=== PATIENT | male | born 1950 | race Caucasian/White ===

== ENCOUNTER 2023-12-10 14:47 | Outpatient (CLI) | payer MEDICARE, SELFPAY ==
--- NOTE | ~2023-12-10 | XR_ITS ---
XR knee RT 3V Ordering provider: Dmitriy Marrufo ([place]), History: . PAIN OF RT KNEE JOINT AFTER FALL . Comparison: None. FINDINGS: BONES: No acute fracture or dislocation. JOINT SPACES: Normal. SOFT TISSUES: Normal. IMPRESSION: No acute osseous abnormality right knee. Reviewed, dictated and finalized at location A.
--- NOTE | ~2023-12-10 | XR_ITS ---
3 VIEWS LUMBAR SPINE Ordering provider: Dmitriy Marrufo ([place]), History: . LUMBAR RADICULOPATHY AFTER FALL . Comparison: None. FINDINGS: VERTEBRAL BODIES: No visible fracture or subluxation. DISK SPACES: Narrowing of the disc L3-L4. SOFT TISSUES: Normal. IMPRESSION: No acute osseous abnormality lumbar spine. Reviewed, dictated and finalized at location A.
--- NOTE | ~2023-12-10 | XR_ITS ---
[id number] Ordering provider: Dmitriy Marrufo ([place]), History: . LT FLANK PAIN AFTER FALL . Comparison: None. FINDINGS: BONES: No acute left rib fracture or fracture of the visualized osseous structures. Degenerative spine. LEFT LUNG: No effusions or infiltrates. No pneumothorax. Emphysematous lungs. SOFT TISSUES: Normal. IMPRESSION: No left rib fracture. Reviewed, dictated and finalized at location A. IMPRESSION: No left rib fracture.
== END 2023-12-10 14:48 | disposition home or self-care (01) ==
PROVIDERS: PCP Internal Medicine; Visit Provider Internal Medicine
DX: M54.16 Radiculopathy, lumbar region (principal); R10.9 Unspecified abdominal pain; M25.561 Pain in right knee
CPT/HCPCS: 71101; 72110; 73562

== ENCOUNTER 2023-12-24 08:57 | Outpatient (CLI) | payer MEDICARE, SELFPAY ==
--- NOTE | ~2023-12-24 | US_ITS ---
EXAMINATION: US aorta [facility] DATE: 12/24/2023 16:19 CDT INDICATION: Nicotine dependence TECHNIQUE: Grayscale, color Doppler, and pulsed Doppler images of the aorta and common iliac arteries were obtained. COMPARISON: None. FINDINGS: The proximal aorta measures 1.9 cm greatest sagittal dimension. The mid aorta measures 1.9 cm greates t sagittal dimension. The distal aorta measures 1.5 cm greatest sagittal dimension. The right common internal iliac artery measures 6 mm. The left common iliac artery measures 6 mm. IMPRESSION: 1. Atherosclerosis of the aorta without evidence for aneurysm. Reviewed, dictated and finalized at location B.
--- NOTE | ~2023-12-24 | CT_ITS ---
EXAMINATION: CT lung screening DATE: 12/24/2023 09:25 INDICATION: HX OF NICOTINE DEPENDENCE TECHNIQUE: Computed tomography (CT) of the chest was performed without intravenous contrast. Addition al 3D reconstructions utilizing coronal maximum intensity projection (MIP) were performed. Automated exposure control and iterative reconstruction technique were employed. The dose-length product was 86 .90 mGy-cm. COMPARISON: None FINDINGS: Moderate emphysema with relatively symmetric mild to moderate biapical pleural-parenchymal scarring. A few small bilateral calcified pulmonary nodules along with calcified right hilar and mediastinal ly mph nodes consistent with old granulomatous disease. A couple 2 mm noncalcified nodules in the right lung. No pulmonary edema or pleural effusion. Heart size is normal. Atherosclerotic coronary artery c alcific lesion. Thoracic aorta is normal in caliber. No pathologically enlarged thoracic lymphadenopa thy. Thyromegaly. There are also few small splenic and single hepatic calcification consistent with o ld granulomatous disease. Partially visualized at least 7.4 similar left renal cyst. Moderate thoraci c spondylosis. IMPRESSION: 1. Lung-RADS category 2: Benign appearance or behavior. Continue annual screening with noncontrast lo w-dose chest CT in 12 months. 2. Thyromegaly. Reviewed, dictated and finalized at location A. IMPRESSION: 1. Lung-RADS category 2: Benign appearance or behavior. Continue annual screeni ng with noncontrast low-dose chest CT in 12 months. 2. Thyromegaly.
--- NOTE | ~2023-12-24 | US_ITS ---
EXAMINATION: US thyroid DATE: 12/24/2023 10:25 INDICATION: Thyroid nodule TECHNIQUE: Multiple ultrasound images of the thyroid were obtained. COMPARISON: None. FINDINGS: The right thyroid lobe measures 8.5 x 4.5 x 3.5 cm. The left thyroid lobe measures 6.8 x 3.7 x 2.9 c m. The thyroid isthmus measures 8 mm in thickness. There are a few solid predominantly solid, wider t ansari tall hypoechoic nodules with smooth margins and without echogenic foci (TI-RADS 4, moderately palak picious , FNA if >=1.5 cm, annual followup is >=1 cm). These measure 10 mm in the inferior right thyr oid, 8 mm in the deep mid right thyroid, 8 mm in the superior right thyroid 7 mm at the isthmus. Ther e is coarsened echotexture throughout the surrounding thyroid. IMPRESSION: 1. Mild thyromegaly with several TI RADS 4 nodules the largest measuring 10 mm for which annual ultra sound follow-up would be recommended. Reviewed, dictated and finalized at location A. IMPRESSION: 1. Mild thyromegaly with several TI RADS 4 nodules the largest measuring 10 mm for which annual ultrasound follow-up would be recommended.
== END 2023-12-24 08:58 | disposition home or self-care (01) ==
LOC: ANHIMG 09:04
PROVIDERS: PCP Internal Medicine; Visit Provider Internal Medicine
DX: Z12.2 Encounter for screening for malignant neoplasm of respiratory organs (principal); E04.1 Nontoxic single thyroid nodule; I70.0 Atherosclerosis of aorta; F17.210 Nicotine dependence, cigarettes, uncomplicated
CPT/HCPCS: 71271; 76536; 76706

== ENCOUNTER 2024-01-30 09:28 | Outpatient (CLI) | payer MEDICARE, SELFPAY ==
--- NOTE | ~2024-01-30 | US_ITS ---
US arterial ankle brachial ind INDICATION: Peripheral vascular disease TECHNIQUE: Segmental pressures and plethysmographic and Doppler waveforms of the brachial and lower e xtremity arteries were obtained. COMPARISON: None. FINDINGS: Right and left brachial artery pressures of 131 mm Hg and 141 mm Hg, respectively, are concordant (no rmal difference <= 30 mmHg). The right ankle-brachial index (DESTINY) is 0.55 (normal >= 0.9-1.0). The right great toe-brachial index (TBI) is 1.21 (normal >= 0.60). The left DESTINY is 1.11. The left TBI is 0.42. IMPRESSION: 1. Diminished right DESTINY) bilateral toe brachial indices consistent with peripheral arterial disease. Reviewed, dictated and finalized at location B. IMPRESSION: 1. Diminished right DESTINY) bilateral toe brachial indices consistent with periphe ral arterial disease.
== END 2024-01-30 09:29 | disposition home or self-care (01) ==
LOC: ANHIMG 09:30
PROVIDERS: PCP Internal Medicine; Visit Provider Internal Medicine
DX: I73.9 Peripheral vascular disease, unspecified (principal)
CPT/HCPCS: 93922

== ENCOUNTER 2024-07-08 16:14 | Outpatient (CLI) | payer MEDICARE, SELFPAY ==
--- NOTE | ~2024-07-08 | US_ITS ---
EXAMINATION: US thyroid DATE: 07/08/2024 16:56 INDICATION: Nontoxic thyroid nodule. TECHNIQUE: Multiple ultrasound images of the thyroid were obtained. COMPARISON: Ultrasound 12/24/2023 FINDINGS: The right thyroid lobe measures 8.2 x 4.7 x 2.3 cm. The left thyroid lobe measures 6.1 x 4.3 x 2.1 c m. In the right thyroid lobe, there is a 9 mm solid, hypoechoic, wider than tall nodule with smooth margin without echogenic foci (TI-RADS TR4). In the right lower lobe, there is an 8 mm solid, hypoech oic, wider than tall nodule with smooth margin without echogenic foci (TR4). IMPRESSION: 1. Small thyroid nodules, likely not clinically significant. No follow-up is needed. Reviewed, dictated and finalized at location A. R OPERATOR IMPRESSION: 1. Small thyroid nodules, likely not clinically significant. No follow-up is ne eded.
--- OUTSIDE RECORDS SUMMARY | 2024-07-08 16:18 | XMS_ITS | CONTINUITY OF CARE DOCUMENT ---
Author Name tanya martínez Address Unknown Organization [facility] Address [address] [place] [address] Phone [phone] Care Team Providers Care Senior Tax Accountant Name Role Phone tanya martínez Unavailable Unavailable INSURANCE PROVIDERS Payer name Policy type / Coverage type [employer] red republican ID [facility] [id number]
--- OUTSIDE RECORDS SUMMARY | 2024-07-08 16:18 | XMS_ITS | Data Portability ---
Author Organization [facility] [employer] Address [address] [facility] [address] [place] [address] Assessment Encounter Date Assessment Date Assessment LastModified by Organization Details LastModified Time 05/30/2023 05/30/2023 Patient presente d for follow up. Studies ordered as below. Discussed plan with patient/caregiver , who expressed understanding. Follow up as noted below. [email or web address] Not available 05/30/2023 09:13:09 11/29/2023 11/29/2023 Patient presente d to office today for their Medicare Annual Wellness Visit. Recommends healthy nutrition, including a diet rich in fruits and vegetables, minimizing simple carbohydrates, salt, and saturated fats. Encouraged regular cardiovascular exercise such as walking at least 30 minutes daily, 5 times per week. Emphasized preventive health measures and educated pt on fall prevention and community-based lifestyle interventions to help reduce health risks and promote healthy living. [facility] Not available 11/29/2023 11:49:15 01/10/2024 01/10/2024 Recommends healthy nutrition, including a diet rich in fruits and vegetables, minimizing simple carbohydrates, salt, and saturated fats. Encouraged regular cardiovascular exercise such as walking at least 30 minutes daily, 5 times per week. Emphasized preventive health measures and educated pt on fall prevention and community-based lifestyle interventions to help reduce health risks and promote healthy living. [facility] Not available 01/10/2024 14:26:59 06/25/2024 06/25/2024 Recommends healthy nutrition, including a diet rich in fruits and vegetables, minimizing simple carbohydrates, salt, and saturated fats. Encouraged regular cardiovascular exercise such as walking at least 30 minutes daily, 5 times per week. Emphasized preventive health measures and educated pt on fall prevention and community-based lifestyle interventions to help reduce health risks and promote healthy living. Not available 06/25/2024 13:24:14 Plan of Treatment Reminders Order Date Submit Date Provider Last Modified By Organization Details Last Modified Time Details Appointments ENEDINA REYNOLDS PATIENT 15 2024 09:30A M Garima Méndez MD Not available Not available Not available Lab TSH, serum or plasma 2022 023 [facility] Not available 02/06/2023 14:04:05 T4, free, serum 2022 023 [facility] Not available 02/06/2023 14:04:03 T3, free, serum or plasma 2022 023 [facility] Not available 02/06/2023 14:04:02 D-dimer , qual, plasma 2022 023 [email or web address] Not available 03/05/2023 12:25:47 CBC w/ auto diff 2022 023 [facility] Not available 02/06/2023 14:04:01 PSA, serum or plasma 2022 023 [facility] Not available 02/06/2023 14:04:04 lipid panel, blood 2022 023 [facility] Not available 02/06/2023 14:04:03 CMP, serum or plasma 2022 023 [facility] Not available 02/06/2023 14:04:01 lipid panel, blood 2023 024 Kimberlyn-Resub anthony-Revert [facility], [address] [facility], [place], [address], 11/29/2023 15:55:17 urinaly sis complet e, reflex culture 2023 024 Kimberlyn-Resub anthony-Revert [facility], [address] [facility], [place], [address], 11/29/2023 13:00:45 noninva sive colorec andra cancer DNA + occult blood screeni ng, QL, stool 2023 024 [facility] (Cologuard Orders Only), [address], [address], [place], [address], 11/29/2023 12:03:57 urinaly sis complet e, reflex culture 2023 024 [facility], [address] [facility], [place], [address], 01/10/2024 14:29:32 lipid panel, blood 2023 024 [facility], [address] [facility], [place], [address], 01/10/2024 14:29:33 noninva sive colorec andra cancer DNA + occult blood screeni ng, QL, stool 2023 024 [facility] [employer] [facility] (Cologuard Orders Only), [address], [address], [place], [address], 02/07/2024 15:22:30 TSH + free T4, serum 2024 025 [facility], [address] [facility], [place], [address], 07/02/2024 08:14:49 T3, free, serum or plasma 2024 025 [facility], [address] [facility], [place], [address], 07/02/2024 08:14:49 PSA, serum or plasma 2024 025 [facility], [address] [facility], [place], [address], 06/25/2024 13:35:59 lipid panel, blood 2024 025 [facility], [address] [facility], [place], [address], 06/25/2024 13:35:59 lipid panel, serum [address] [facility], [address] [facility], [place], [address], 07/02/2024 08:14:49 CMP, serum or plasma 2024 025 [facility], [address] [facility], [place], [address], 07/03/2024 14:00:59 noninva sive colorec andra cancer DNA + occult blood screeni ng, QL, stool 2024 025 [facility] [employer] [facility] (Cologuard Orders Only), [address], [address], [place], [address], 06/25/2024 13:35:00 Referral cardiol ogist referra l 2022 023 catrina [facility], [address] [facility], [address], [place], [address], 02/07/2024 08:23:07 cardiol ogist referra l 2022 023 ESTER Lugo MD, [address] [facility] , [address], [place], [address], 08/14/2023 10:30:[address] referra l 2022 023 [facility], [address] [facility], [address], [place], [address], 06/27/2023 08:18:[address] referra l 2023 024 [facility], [address] [place] [address], [place], [address], 12/27/2023 08:15:20 cardiol ogist referra l 2023 024 johnathonuDerick Lugo MD, [address] [facility] , [address], [place], [address], 11/29/2023 12:16:47 neurolo gist referra l 2023 024 JAMAMaye Anderson MD, [address] [facility] , [address], [place], [address], 11/29/2023 12:29:[address] referra l 2023 024 [facility], OT, Speech Therapy, [address] [facility] , [place], [address], 11/29/2023 12:29:04 cardiol ogist referra l 2023 024 [facility] Cardiology [facility], [address] [place], [address], 01/10/2024 14:30:[address] referra l 2023 024 [facility] Urology [facility], [address], [place], [address], 02/07/2024 08:23:20 neurolo gist referra l 2023 024 [facility], [address], [place], [address], 01/10/2024 14:30:[address] referra l 2024 025 [facility] Urology [facility], [address], [place], [address], 06/25/2024 13:55:19 orthope dic surgeon referra l 2024 025 [facility]), [address] [facility], [place], [address], 06/25/2024 18:30:57 neurolo gist referra l 2024 025 ESTER Anderson MD, [address] [facility] , [address], [place], [address], 07/06/2024 11:25:22 Procedures None recorde d. Surgeries None recorde d. Imaging US, thyroid 2022 023 [email or web address] [facility]), [address], [address], [place], [address], 02/14/2023 16:35:26 electro cardiog miguel angel 2022 023 [facility], [address], [place], [address], 02/07/2023 09:40:34 CT, angiogr am, chest, w/ contras t - -- to evaluat e for aneurys m &/or dissect ion 2022 023 [facility]), [address], [address], [place], [address], 04/04/2023 16:17:26 US, screeni ng for abdomin al aortic aneurys m 2022 023 [facility]), [address], [address], [place], [address], 02/07/2023 08:14:06 US, doppler , arteria l 2022 023 catrina [facility] Ultrasound Department, [address] [facility] , [place], [address], 08/21/2023 08:15:05 US, thyroid 2022 023 catrina [facility], [address] [facility], [place], [address], 06/13/2023 08:25:21 US, screeni ng for abdomin al aortic aneurys m 2022 023 [email or web address] [facility]), [address], [address], [place], [address], 06/07/2023 08:26:43 LDCT, chest, for lung cancer screeni ng - -- LDCT to be done around 04/03/242022 023 [facility] Central Scheduling, [address] [facility], [place], [address], 06/07/2023 08:26:44 US, doppler , arteria l 2023 024 [facility], [address], [address], [place], [address], 12/17/2023 08:03:38 US, thyroid 2023 024 [facility] Centralized Scheduling, Centralized Scheduling, [address] [facility] [place], [address], 12/13/2023 08:51:02 XR, knee, 3 view 2023 024 [facility] Centralized Scheduling, Centralized Scheduling, [address] [place], [address], 12/06/2023 08:20:41 XR, lumbar spine 2023 024 [facility] Centralized Scheduling, Centralized Scheduling, [address] [place], [address], 12/06/2023 08:20:41 XR, ribs, unilate ral, w/ PA chest 2023 024 [facility] Central Scheduling, [address] [facility], [place], [address], 12/06/2023 08:20:41 US, screeni ng for abdomin al aortic aneurys m 2023 024 [facility] Centralized Scheduling, Centralized Scheduling, [address] [facility] [place], [address], 12/06/2023 08:20:40 LDCT, chest, for lung cancer screeni ng - -- LDCT to be done around 04/03/242023 024 [facility] Patient Access Centralized Scheduling, Centralized Scheduling, [address] [facility] [place], [address], 12/06/2023 08:20:40 MRI, brain, w/wo contras t 2023 024 [facility] Patient Access Centralized Scheduling, Centralized Scheduling, [address] [facility] [place], [address], 12/06/2023 08:20:40 US, thyroid 2023 025 [facility], [address] [place] [address], [address], 01/10/2024 14:29:55 XR, knee, 3 view [address], [address] [place] [address], [address], 01/17/2024 09:05:11 US, thyroid - Radiolo gist recomme nds repeati ng thyroid Ultraso und 1 year from 12/26/232024 025 [facility], [address] [place] [address], [address], 06/25/2024 13:45:27 Medication Orders sildena finn 100 mg tablet 2022 023 [facility] [address], [place], [address], 01/31/2023 17:23:34 sildena finn 100 mg tablet 2022 023 [facility], [address], [place], [address], 05/30/2023 10:20:54 sildena finn 100 mg tablet 2023 024 [facility] [address], [address], [place], [address], 11/29/2023 12:04:01 Breztri Aerosph ere 160 mcg-9mc g-4.8mc g/actua tion HFA aerosol inhaler [address] [id number], [address], [place], [address], 01/10/2024 14:28:36 sildena finn 100 mg tablet 2023 024 [facility], [address], [place], [address], 01/10/2024 14:28:42 Breztri Aerosph ere 160 mcg-9mc g-4.8mc g/actua tion HFA aerosol inhaler [address] [facility] [id number], [address], [place], [address], 06/25/2024 13:35:10 rosuvas tatin 5 mg tablet [address] [facility] [id number], [address], [place], [address], 06/25/2024 13:35:09 sildena finn 100 mg tablet 2024 025 [facility] [address], [address], [place], [address], 06/25/2024 13:35:11 Patient TargetsNo targets recorded. Patient Instructions Encounter Date Encounter Id Patient Instructions Last Modified By Organization Details Last Modified Time 01/31/2023 [id number] advised to quit smoking Not available 01/31/2023 17:23:27 05/30/2023 [id number] advised to quit smoking Not available 05/30/2023 10:20:46 11/29/2023 [id number] medicare preventive services guide Not available 11/29/2023 12:03:49 advance care planning: care instructions Not available 11/29/2023 12:03:49 advised to quit smoking Not available 11/29/2023 12:03:49 Discussed and explained advance directives such as standard forms to the {{patient caregiv er patient and caregiver}}. Face to face discussion lasted for a duration of ___ minutes. Not available 11/29/2023 11:39:36 01/10/2024 [id number] advised to quit smoking [facility] Not available 01/10/2024 14:28:32 06/25/2024 [id number] advised to quit smoking Not available 06/25/2024 13:34:59 Reason for Referral Bin Cleaner Referral for Ch est pain Referring Physician: Garima Méndez [facility], Encounter Date: 01/31/2023 Bin Cleaner Referral for Ch est pain Referring Physician: Garima Méndez [facility], Encounter Date: 05/30/2023 Urologist Referral for Prost ate specific antigen outside reference range Referring Physician: Garima Méndez [facility], Encounter Date: 05/30/2023 Bin Cleaner Referral for Ch est pain Referring Physician: Sariah Cruz Medicine, Encounter Date: 11/29/2023 Urologist Referral for Prost ate specific antigen outside reference range Referring Physician: Garima Méndez [facility], Encounter Date: 11/29/2023 Neurologist Referral for Uns teady when walking Referring Physician: Garima Méndez [facility], Encounter Date: 11/29/2023 Physical Therapist Referral for Unsteady when walking Referring Physician: Garima Méndez [facility], Encounter Date: 11/29/2023 Bin Cleaner Referral for Ch est pain Referring Physician: Garima Méndez [facility], Encounter Date: 01/10/2024 Urologist Referral for Prost ate specific antigen outside reference range Referring Physician: Garima Méndez [facility], Encounter Date: 01/10/2024 Neurologist Referral for Uns teady when walking Referring Physician: Garima Méndez [facility], Encounter Date: 01/10/2024 Urologist Referral for Prost ate specific antigen outside reference range Referring Physician: Garima Méndez [facility], Encounter Date: 06/25/2024 Orthopedic Surgeon Referral for Pain of right knee joint Referring Physician: Garima Méndez [facility], Encounter Date: 06/25/2024 Neurologist Referral for Int ention tremor Referring Physician: Garima Méndez [facility], Encounter Date: 06/25/2024 Results Created Date Observation Date Name Description Value Unit Range Abnormal Flag Note LastModifiedBy Organization Detail LastModifiedTime 02/06/2002/05/2023 COMPL ETE CBC W/AUT O DIFF WBC white blood cell count 7.9 thous and/u L 3.5-10 .0 Not Available [facility] [address] ,[place], [address], 02/06/2023 14:04:01 02/06/2002/05/2023 COMPL ETE CBC W/AUT O DIFF WBC red blood cell count 4.2 mehul on/uL 3.5-5. 5 Not Available [facility] (Main Location) [address] ,, [place], [address], 02/06/2023 14:04:01 02/06/20 23 02/05/2023 COMPL ETE CBC W/AUT O DIFF WBC hemoglobin 14.1 g/dL 11.5-1 6.5 Not Available [facility] (Main Location) [address] ,, [place], [address], 02/06/2023 14:04:01 02/06/20 23 02/05/2023 COMPL ETE CBC W/AUT O DIFF WBC hematocrit 44 % 35-55 Not Available [facility] [address] ,, [place], [address], 02/06/2023 14:04:01 02/06/20 23 02/05/2023 COMPL ETE CBC W/AUT O DIFF WBC MCH 33 pg 25-35 Not Available [facility] (Main Location) [facility] [address] ,, [place], [address], 02/06/2023 14:04:01 02/06/20 23 02/05/2023 COMPL ETE CBC W/AUT O DIFF WBC MCHC 32 g/dL 31-38 Not Available [facility] (Main Location) [facility] [address] ,, [place], [address], 02/06/2023 14:04:01 02/06/20 23 02/05/2023 COMPL ETE CBC W/AUT O DIFF WBC MCV 104 fL 75-100 high Not Available [facility] [address] ,, [place], [address], 02/06/2023 14:04:01 02/06/20 23 02/05/2023 COMPL ETE CBC W/AUT O DIFF WBC RDW-CV 14 % 11-15 Not Available [facility] (Main Location) [facility] [address] ,, [place], [address], 02/06/2023 14:04:01 02/06/20 23 02/05/2023 COMPL ETE CBC W/AUT O DIFF WBC neutrophils% 58.1 % Not Available [facility] [address] ,, [place], [address], 02/06/2023 14:04:01 02/06/20 23 02/05/2023 COMPL ETE CBC W/AUT O DIFF WBC lymphocytes% 25.1 % Not Available [facility] [address] ,, [place], [address], 02/06/2023 14:04:01 02/06/20 23 02/05/2023 COMPL ETE CBC W/AUT O DIFF WBC monocytes% 6.9 % Not Available [facility] [address] ,, [place], [address], 02/06/2023 14:04:01 02/06/20 23 02/05/2023 COMPL ETE CBC W/AUT O DIFF WBC eosinophil % 8.5 % 0.0-7. 0 high Not Available [facility] [address] ,, [place], [address], 02/06/2023 14:04:01 02/06/20 23 02/05/2023 COMPL ETE CBC W/AUT O DIFF WBC basophil % 1.3 % 0.0-3. 0 Not Available [facility] [address] ,, [place], [address], 02/06/2023 14:04:01 02/06/20 23 02/05/2023 COMPL ETE CBC W/AUT O DIFF WBC absolute neutrophils 4.6 cells /uL 1.5-7. 8 Not Available [facility] [address] ,, [place], [address], 02/06/2023 14:04:01 02/06/20 23 02/05/2023 COMPL ETE CBC W/AUT O DIFF WBC absolute lymphocytes 1.97 cells /uL 0.85-3 .90 Not Available [facility]Main [facility] [address] ,, [place], [address], 02/06/2023 14:04:01 02/06/20 23 02/05/2023 COMPL ETE CBC W/AUT O DIFF WBC absolute monocytes 0.5 cells /uL 0.2-1. 0 Not Available [facility] (Main Location) [address] ,, [place], [address], 02/06/2023 14:04:01 02/06/20 23 02/05/2023 COMPL ETE CBC W/AUT O DIFF WBC absolute eosinophils 0.7 cells /uL 0.0-0. 5 high Not Available [facility] ,, [place], [address], 02/06/2023 14:04:01 02/06/20 23 02/05/2023 COMPL ETE CBC W/AUT O DIFF WBC absolute basophils 0.1 cells /uL 0.0-0. 2 Not Available [facility] (Main Location) [address] ,, [place], [address], 02/06/2023 14:04:01 02/06/20 23 02/05/2023 COMPL ETE CBC W/AUT O DIFF WBC platelet count 349 thous and/u L 100-40 0 Not Available [facility]Main [facility] [address] ,, [place], [address], 02/06/2023 14:04:01 02/06/20 23 02/05/2023 CMP (COMP REHEN SIVE METAB OLIC PANEL ) glucose 97 mg/dL 74-99 Not Available [facility]Main [facility] [address] ,, [place], [address], 02/06/2023 14:04:01 02/06/20 23 02/05/2023 CMP (COMP REHEN SIVE METAB OLIC PANEL ) urea nitrogen, blood (BUN) 16 mg/dL 8-23 Not Available [facility] (Main Location) [facility] ,, [place], [address], 02/06/2023 14:04:01 02/06/20 23 02/05/2023 CMP (COMP REHEN SIVE METAB OLIC PANEL ) total bilirubin 0.5 mg/dL 0.0-1. 2 Not Available [facility] (Main Location) [address] ,, [place], [address], 02/06/2023 14:04:01 02/06/20 23 02/05/2023 CMP (COMP REHEN SIVE METAB OLIC PANEL ) total protein 6.4 g/dL 6.6-8. 7 low Not Available [facility] (Main Location) [facility] [address] ,, [place], [address], 02/06/2023 14:04:01 02/06/20 23 02/05/2023 CMP (COMP REHEN SIVE METAB OLIC PANEL ) alanine aminotransfe rase (ALT) 5 U/L 0-41 Not Available [facility] (Main Location) [facility] [address] ,, [place], [address], 02/06/2023 14:04:01 02/06/20 23 02/05/2023 CMP (COMP REHEN SIVE METAB OLIC PANEL ) alkaline phosphatase 107 U/L 40-130 Not Available [facility] (Main Location) [facility] [address] ,, [place], [address], 02/06/2023 14:04:01 02/06/20 23 02/05/2023 CMP (COMP REHEN SIVE METAB OLIC PANEL ) aspartate aminotransfe rase (AST) 9 U/L 0-40 Not Available [facility] (Main Location) [facility] [address] ,, [place], [address], 02/06/2023 14:04:01 02/06/20 23 02/05/2023 CMP (COMP REHEN SIVE METAB OLIC PANEL ) calcium 9.3 mg/dL 8.6-10 .2 Not Available [facility] (Main Location) [facility] [address] ,, [place], [address], 02/06/2023 14:04:01 02/06/20 23 02/05/2023 CMP (COMP REHEN SIVE METAB OLIC PANEL ) albumin 3.7 g/dL 3.5-5. 2 Not Available [facility] (Main Location) [facility] ,, [place], [address], 02/06/2023 14:04:01 02/06/20 23 02/05/2023 CMP (COMP REHEN SIVE METAB OLIC PANEL ) CO2 28 mmol/ L 23-31 Not Available [facility] (Main Location) [address] [place], [place] [address] ,, [place], [address], 02/06/2023 14:04:01 02/06/20 23 02/05/2023 CMP (COMP REHEN SIVE METAB OLIC PANEL ) creatinine, serum 1.6 mg/dL 0.7-1. 2 high Not Available [facility] (Main Location) [facility] [address] ,, [place], [address], 02/06/2023 14:04:01 02/06/20 23 02/05/2023 CMP (COMP REHEN SIVE METAB OLIC PANEL ) sodium, serum 144 mmol/ L 136-14 5 Not Available [facility] (Main Location) [address] [place], [place] [address] ,, [place], [address], 02/06/2023 14:04:01 02/06/20 23 02/05/2023 CMP (COMP REHEN SIVE METAB OLIC PANEL ) potassium, serum 4.5 mmol/ L 3.5-5. 1 Not Available [facility] (Main Location) [address] [place], [place] [address] ,, [place], [address], 02/06/2023 14:04:01 02/06/20 23 02/05/2023 CMP (COMP REHEN SIVE METAB OLIC PANEL ) chloride, serum 109 mmol/ L 98-107 high Not Available [facility] (Main Location) [facility] [address] ,, [place], [address], 02/06/2023 14:04:01 02/06/20 23 02/05/2023 CMP (COMP REHEN SIVE METAB OLIC PANEL ) eGFR 46 >59 low Persi stent reduc tion for 3 month s or more in an eGFR <60 mL/mi n/1.7 3 m2 defin es CKD. Patie nts with eGFR value s>/=6 0 mL/mi n/1.7 3 m2 may also have CKD if evide nce of persi stent protu niuri a is prese nt. Addit ional infor nikki davies may be found at www.k doqi. org. Not Available [facility] (Main Location) [address] ,, [place], [address], 02/06/2023 14:04:01 02/06/20 23 02/05/2023 FREE TRIIO DOTHY SPARKLE E (FT3) FT3 2.9 pg/mL 1.5-4. 1 Not Available [facility] (Main Location) [address] ,, [place], [address], 02/06/2023 14:04:02 02/06/20 23 02/05/2023 FREE THYRO XINE (FT4) FT4 1.04 NG/dL 0.93-1 .70 Not Available [facility] (Main Location) [address] ,, [place], [address], 02/06/2023 14:04:03 02/06/20 23 02/05/2023 LIPID PANEL trigylceride s 82 mg/dL 0-150 Not Available [facility] (Main Location) [address] ,, [place], [address], 02/06/2023 14:04:03 02/06/20 23 02/05/2023 LIPID PANEL cholesterol 124 mg/dL 0-200 Not Available [facility] (Main Location) [address] ,, [place], [address], 02/06/2023 14:04:03 02/06/20 23 02/05/2023 LIPID PANEL uhdl 28 mg/dL 35-55 low Not Available [facility] (Main Location) [address] ,, [place], [address], 02/06/2023 14:04:03 02/06/20 23 02/05/2023 LIPID PANEL LDL, calculated 80 mg/dL 0-100 Not Available [facility] (Main Location) [facility] ,, [place], [address], 02/06/2023 14:04:03 02/06/20 23 02/05/2023 LIPID PANEL LDL/HDL ratio 3 mg/dL 0-5 Not Available [facility] (Main Location) [facility] [address] ,, [place], [address], 02/06/2023 14:04:03 02/06/20 23 02/05/2023 LIPID PANEL VLDL 16.4 mg/dL 5.0-40 .0 Not Available [facility] (Main Location) [address] [place], [place] [address] ,, [place], [address], 02/06/2023 14:04:03 02/06/20 23 02/05/2023 LIPID PANEL cholesterol/ HDL ratio 4.43 0.00-5 .00 Not Available [facility] (Main Location) [address] [place], [place] [address] ,, [place], [address], 02/06/2023 14:04:03 02/06/20 23 02/05/2023 PROST ATE-S PECIF IC ANTIG EN (PSA) SCREE N PSA, total 6.0 NG/mL 0.0-4. 0 high PSA is an elect selena mil inesc ence immun oassa y run on the Selena Miesha 6000. Not Available [facility] (Main Location) [facility] [address] ,, [place], [address], 02/06/2023 14:04:04 02/06/2002/05/2023 THYRO ID STIMU LATIN G HORMO NE (TSH) TSH 0.31 ?IU/m L 0.27-4 .20 Not Available [facility] (Main Location) [facility] ,, [place], [address], 02/06/2023 14:04:05 02/06/20 23 03/05/2023 HS D DIMER hs D dimer 755 NG{fe u}/mL 0-500 critical high D-Dim er value s less than or equal to 500 ng/mL FEU have a negat cindy predi ctive value of >95% for exclu lamine of deep vein throm bosis and pulmo nary embol ism. In patie nts over 50 (who tend to have highe r kenzie l basel ine D-Dim er value s), recen t studi es sugge st age-a djust ed D-Dim er cutof f value s (calc ulate d as: age [year s] x 10 ng/mL ) resul t in equiv alent outco mes and no addit ional false negat cindy findi ngs. Not Available [facility] (Lab) [facility], [place], [address], 03/05/2023 07:35:07 02/06/20 23 03/05/2023 HS D DIMER hs D dimer 755 NG{fe u}/mL 0-500 critical high D-Dim er value s less than or equal to 500 ng/mL FEU have a negat cindy predi ctive value of >95% for exclu lamine of deep vein throm bosis and pulmo nary embol ism. In patie nts over 50 (who tend to have highe r kenzie l basel ine D-Dim er value s), recen t studi es sugge age-a djust ed D-Dim er cutof f value s (calc ulate d as: age [year s] x 10 ng/mL ) resul t in equiv alent outco mes and no addit ional false negat cindy findi ngs. Succe ssful Call: KYREEIMR ortiz d 03/05 06:35 AM to [facility] JAYLYNI ES ([phone] / [place] ) [place] [id number]. Read Back: Yes Not Available [facility] (Lab) [facility], [place], [address], 03/05/2023 07:35:39 03/13/2003/13/2023 CMP (COMP REHEN SIVE METAB OLIC PANEL ) glucose 88 mg/dL 74-99 Not Available [facility] (Main Location) [facility] [address] ,, [place], [address], 03/14/2023 15:21:15 03/13/2003/13/2023 CMP (COMP REHEN SIVE METAB OLIC PANEL ) urea nitrogen, blood (BUN) 11 mg/dL 8-23 Not Available [facility] (Main Location) [address] [place], [place] [address] ,, [place], [address], 03/14/2023 15:21:15 03/13/2003/13/2023 CMP (COMP REHEN SIVE METAB OLIC PANEL ) total bilirubin 0.5 mg/dL 0.0-1. 2 Not Available [facility] (Main Location) [address] [place], [place] [address] ,, [place], [address], 03/14/2023 15:21:15 03/13/2003/13/2023 CMP (COMP REHEN SIVE METAB OLIC PANEL ) total protein 6.3 g/dL 6.6-8. 7 low Not Available [facility] (Main Location) [address] [place], [place] [address] ,, [place], [address], 03/14/2023 15:21:15 03/13/20 23 03/13/2023 CMP (COMP REHEN SIVE METAB OLIC PANEL ) alanine aminotransfe rase (ALT) 6 U/L 0-41 Not Available [facility] (Main Location) [address] [place], [place] [address] ,, [place], [address], 03/14/2023 15:21:15 03/13/20 23 03/13/2023 CMP (COMP REHEN SIVE METAB OLIC PANEL ) alkaline phosphatase 126 U/L 40-130 Not Available [facility] (Main Location) [address] [place], [place] [address] ,, [place], [address], 03/14/2023 15:21:15 03/13/20 23 03/13/2023 CMP (COMP REHEN SIVE METAB OLIC PANEL ) aspartate aminotransfe rase (AST) 9 U/L 0-40 Not Available [facility] (Main Location) [facility] ,, [place], [address], 03/14/2023 15:21:15 03/13/20 23 03/13/2023 CMP (COMP REHEN SIVE METAB OLIC PANEL ) calcium 9.0 mg/dL 8.6-10 .2 Not Available [facility] (Main Location) [facility] [address] ,, [place], [address], 03/14/2023 15:21:15 03/13/20 23 03/13/2023 CMP (COMP REHEN SIVE METAB OLIC PANEL ) albumin 3.8 g/dL 3.5-5. 2 Not Available [facility] (Main Location) [facility] [address] ,, [place], [address], 03/14/2023 15:21:15 03/13/20 23 03/13/2023 CMP (COMP REHEN SIVE METAB OLIC PANEL ) CO2 27 mmol/ L 23-31 Not Available [facility] (Main Location) [facility] [address] ,, [place], [address], 03/14/2023 15:21:15 03/13/20 23 03/13/2023 CMP (COMP REHEN SIVE METAB OLIC PANEL ) creatinine, serum 1.4 mg/dL 0.7-1. 2 high Not Available [facility] (Main Location) [facility] [address] ,, [place], [address], 03/14/2023 15:21:15 03/13/20 23 03/13/2023 CMP (COMP REHEN SIVE METAB OLIC PANEL ) sodium, serum 141 mmol/ L 136-14 5 Not Available [facility] (Main Location) [facility] [address] ,, [place], [address], 03/14/2023 15:21:15 03/13/20 23 03/13/2023 CMP (COMP REHEN SIVE METAB OLIC PANEL ) potassium, serum 4.8 mmol/ L 3.5-5. 1 Not Available [facility] (Main Location) [address] ,, [place], [address], 03/14/2023 15:21:15 03/13/2003/13/2023 CMP (COMP REHEN SIVE METAB OLIC PANEL ) chloride, serum 108 mmol/ L 98-107 high Not Available [facility] (Main Location) [address] ,, [place], [address], 03/14/2023 15:21:15 03/13/2003/13/2023 CMP (COMP REHEN SIVE METAB OLIC PANEL ) eGFR 52 >59 low Persi stent reduc tion for 3 month s or more in an eGFR <60 mL/mi n/1.7 3 m2 defin es CKD. Patie nts with eGFR value s>/=6 0 mL/mi n/1.7 3 m2 may also have CKD if evide nce of persi stent protu niuri a is prese nt. Addit ional infor nikki davies may be found at www.[email or web address] [email or web address] org. Not Available [facility] (Main Location) [address] ,, [place], [address], 03/14/2023 15:21:15 03/13/2003/13/2023 LIPID PANEL trigylceride s 69 mg/dL 0-150 Not Available [facility] (Main Location) [address] ,, [place], [address], 03/14/2023 15:21:16 03/13/2003/13/2023 LIPID PANEL cholesterol 124 mg/dL 0-200 Not Available [facility] (Main Location) [address] ,, [place], [address], 03/14/2023 15:21:16 10/11/20 23 03/13/2023 LIPID PANEL uhdl 29 mg/dL 35-55 low Not Available [facility] (Main Location) [facility] [address] ,, [place], [address], 03/14/2023 15:21:16 03/13/20 23 03/13/2023 LIPID PANEL LDL, calculated 81 mg/dL 0-100 Not Available [facility] (Main Location) [facility] [address] ,, [place], [address], 03/14/2023 15:21:16 03/13/20 23 03/13/2023 LIPID PANEL LDL/HDL ratio 3 mg/dL 0-5 Not Available [facility] (Main Location) [facility] [address] ,, [place], [address], 03/14/2023 15:21:16 03/13/20 23 03/13/2023 LIPID PANEL VLDL 13.8 mg/dL 5.0-40 .0 Not Available [facility] (Main Location) [facility] [address] ,, [place], [address], 03/14/2023 15:21:16 03/13/20 23 03/13/2023 LIPID PANEL cholesterol/ HDL ratio 4.28 0.00-5 .00 Not Available [facility] [address] ,, [place], [address], 03/14/2023 15:21:16 05/21/20 23 05/21/2023 CMP (COMP REHEN SIVE METAB OLIC PANEL ) glucose 99 mg/dL 74-99 Not Available [facility] [address] ,, [place], [address], 05/22/2023 14:13:42 05/21/20 23 05/21/2023 CMP (COMP REHEN SIVE METAB OLIC PANEL ) urea nitrogen, blood (BUN) 9 mg/dL 8-23 Not Available [facility] [address] ,, [place], [address], 05/22/2023 14:13:42 05/21/20 23 05/21/2023 CMP (COMP REHEN SIVE METAB OLIC PANEL ) total bilirubin 0.4 mg/dL 0.0-1. 2 Not Available [facility] (Main Location) [address] [place], [place] [address] ,, [place], [address], 05/22/2023 14:13:42 05/21/20 23 05/21/2023 CMP (COMP REHEN SIVE METAB OLIC PANEL ) total protein 6.5 g/dL 6.6-8. 7 low Not Available [facility] (Main Location) [address] [place] [address] [address] ,, [place], [address], 05/22/2023 14:13:42 05/21/20 23 05/21/2023 CMP (COMP REHEN SIVE METAB OLIC PANEL ) alanine aminotransfe rase (ALT) 8 U/L 0-41 Not Available [facility] (Main Location) [address] [place] [address]. [address] ,, [place], [address], 05/22/2023 14:13:42 05/21/20 23 05/21/2023 CMP (COMP REHEN SIVE METAB OLIC PANEL ) alkaline phosphatase 136 U/L 40-130 high Not Available [facility] (Main Location) [address] [place] [address] [address] ,, [place], [address], 05/22/2023 14:13:42 05/21/20 23 05/21/2023 CMP (COMP REHEN SIVE METAB OLIC PANEL ) aspartate aminotransfe rase (AST) 13 U/L 0-40 Not Available [facility] (Main Location) [address] [place] [address] [address] ,, [place], [address], 05/22/2023 14:13:42 05/21/20 23 05/21/2023 CMP (COMP REHEN SIVE METAB OLIC PANEL ) calcium 9.0 mg/dL 8.6-10 .2 Not Available [facility] (Main Location) [address] [place] [address]. [address] ,, [place], [address], 05/22/2023 14:13:42 05/21/20 23 05/21/2023 CMP (COMP REHEN SIVE METAB OLIC PANEL ) albumin 3.9 g/dL 3.5-5. 2 Not Available [facility] (Main Location) [address] [place], [place] [address] ,, [place], [address], 05/22/2023 14:13:42 05/21/20 23 05/21/2023 CMP (COMP REHEN SIVE METAB OLIC PANEL ) CO2 28 mmol/ L 23-31 Not Available [facility] (Main Location) [address] [place], [place] [address] ,, [place], [address], 05/22/2023 14:13:42 05/21/20 23 05/21/2023 CMP (COMP REHEN SIVE METAB OLIC PANEL ) creatinine, serum 1.6 mg/dL 0.7-1. 2 high Not Available [facility] (Main Location) [address] [place], [place] [address] ,, [place], [address], 05/22/2023 14:13:42 05/21/20 23 05/21/2023 CMP (COMP REHEN SIVE METAB OLIC PANEL ) sodium, serum 144 mmol/ L 136-14 5 Not Available [facility] (Main Location) [address] [place] [address] [address] ,, [place], [address], 05/22/2023 14:13:42 05/21/20 23 05/21/2023 CMP (COMP REHEN SIVE METAB OLIC PANEL ) potassium, serum 4.7 mmol/ L 3.5-5. 1 Not Available [facility] (Main Location) [address] [place] [address] [address] ,, [place], [place], [address], 05/22/2023 14:13:42 05/21/20 23 05/21/2023 CMP (COMP REHEN SIVE METAB OLIC PANEL ) chloride, serum 108 mmol/ L 98-107 high Not Available [facility] (Main Location) [address] [place] [address] [address] ,, [place], [address], 05/22/2023 14:13:42 05/21/20 23 05/21/2023 CMP (COMP REHEN SIVE METAB OLIC PANEL ) eGFR 46 >59 low Persi stent reduc tion for 3 month s or more in an eGFR <60 mL/mi n/1.7 3 m2 defin es CKD. Patie nts with eGFR value s>/=6 0 mL/mi n/1.7 3 m2 may also have CKD if evide nce of persi stent protu farzana a is prese nt. Addit ional infor nikki davies may be found at www.k doqi. org. Not Available [facility] (Main Location) [address] ,, [place], [address], 05/22/2023 14:13:42 05/21/20 23 05/21/2023 CREAT INE KINAS E (CPK) creatine kinase 263 U/L 0-190 high Not Available [facility] (Main Location) [address] ,, [place], [address], 05/22/2023 14:13:43 05/21/20 23 05/21/2023 LIPID PANEL trigylceride s 73 mg/dL 0-150 Not Available [facility] (Main Location) [address] ,, [place], [address], 05/22/2023 14:13:44 05/21/20 23 05/21/2023 LIPID PANEL cholesterol 102 mg/dL 0-200 Not Available [facility] (Main Location) [address] ,, [place], [address], 05/22/2023 14:13:44 05/21/20 23 05/21/2023 LIPID PANEL uhdl 30 mg/dL 35-55 low Not Available [facility] (Main Location) [address] ,, [place], [address], 05/22/2023 14:13:44 05/21/20 23 05/21/2023 LIPID PANEL LDL, calculated 57 mg/dL 0-100 Not Available [facility] (Main Location) [address] ,, [place], [address], 05/22/2023 14:13:44 05/21/20 23 05/21/2023 LIPID PANEL LDL/HDL ratio 2 mg/dL 0-5 Not Available [facility] (Main Location) [address] ,, [place], [address], 05/22/2023 14:13:44 05/21/20 23 05/21/2023 LIPID PANEL VLDL 14.6 mg/dL 5.0-40 .0 Not Available [facility] (Main Location) [address] ,, [place], [address], 05/22/2023 14:13:44 05/21/20 23 05/21/2023 LIPID PANEL cholesterol/ HDL ratio 3.40 0.00-5 .00 Not Available [facility] (Main Location) [facility] ,, [place], [address], 05/22/2023 14:13:44 12/10/19 24 12/10/2023 LIPID PANEL W/ CALC. LDL cholesterol, total 123 mg/dL 100-19 9 Not Available [facility] [address] [facility] [address], [place], [address], 12/12/2023 12:31:16 12/10/19 24 12/10/2023 LIPID PANEL W/ CALC. LDL HDL cholesterol 34 mg/dL =>40 Not Available [facility] [address] [facility] [address], [place], [address], 12/12/2023 12:31:16 12/10/19 24 12/10/2023 LIPID PANEL W/ CALC. LDL LDL cholesterol (calculated) 73 mg/dL 0-99 Not Available [facility] [address] [facility] [address], [place], [address], 12/12/2023 12:31:16 12/10/19 24 12/10/2023 LIPID PANEL W/ CALC. LDL triglyceride s 80 mg/dL 50-149 Not Available [facility] [address] [facility] [address], [place], [address], 12/12/2023 12:31:16 12/10/19 24 12/10/2023 LIPID PANEL W/ CALC. LDL chol/HDL ratio (calculated) 3.62 ratio 0.00-5 .00 Not Available [facility] [address] [facility] [address], [place], [address], 12/12/2023 12:31:16 12/10/19 24 12/10/2023 LIPID PANEL W/ CALC. LDL VLDL cholesterol (calculated) 16 mg/dL 5-40 Not Available [facility] [address] [facility] [address], [place], [address], 12/12/2023 12:31:16 07/02/19 25 07/02/2024 COMPR EHENS CINDY METAB OLIC PANEL sodium 144 mmol/ L 134-14 4 Not Available [facility] [address] [facility] [address], [place], [address], 07/03/2024 14:00:59 07/02/19 25 07/02/2024 COMPR EHENS CINDY METAB OLIC PANEL potassium 4.5 mmol/ L 3.5-5. 2 Not Available [facility] [address] [facility] [address], [place], [address], 07/03/2024 14:00:59 07/02/19 25 07/02/2024 COMPR EHENS CINDY METAB OLIC PANEL chloride 106 mmol/ L 98-107 Not Available [facility] [address] [facility] [address], [place], [address], 07/03/2024 14:00:59 07/02/19 25 07/02/2024 COMPR EHENS CINDY METAB OLIC PANEL carbon dioxide (co2) 26.0 mmol/ L 18.0-2 9.0 Not Available [facility] [address] [facility] [address], [place], [address], 07/03/2024 14:00:59 07/02/19 25 07/02/2024 COMPR EHENS CINDY METAB OLIC PANEL glucose 94 mg/dL 65-99 Kenzie l Fasti n - 99 mg/dL Impai red Fasti n - 125 mg/dL Diagn ostic of Diabe eduardo: => 126 mg/dL Ameri can [facility], 2007 Not Available [facility] [address] [facility] [address], [place], [address], 07/03/2024 14:00:59 07/02/19 25 07/02/2024 COMPR EHENS CINDY METAB OLIC PANEL urea nitrogen (BUN) 17 mg/dL 8-23 Not Available [facility] [address] [facility] [address], [place], [address], 07/03/2024 14:00:59 07/02/19 25 07/02/2024 COMPR EHENS CINDY METAB OLIC PANEL creatinine 1.57 mg/dL 0.76-1 .27 high Not Available [facility] [address] [facility] [address], [place], [address], 07/03/2024 14:00:59 07/02/19 25 07/02/2024 COMPR EHENS CINDY METAB OLIC PANEL eGFR 46 mL/mi nute/ 1.73_ m2 >59 low MDRD Study Equat ion: The calcu lated GFR is NOT appli cable for pedia tric (< 18 years old) and > 70 year old patie nts and patie nts that are NOT of stead [place] state . Not Available [facility] [address] [facility] [address], [place], [address], 07/03/2024 14:00:59 07/02/19 25 07/02/2024 COMPR EHENS CINDY METAB OLIC PANEL calcium 9.1 mg/dL 8.6-10 .2 Not Available [facility] [address] [facility] [address], [place], [address], 07/03/2024 14:00:59 07/02/19 25 07/02/2024 COMPR EHENS CINDY METAB OLIC PANEL protein, total 6.4 gm/dL 6.4-8. 3 Not Available [facility] [address] [facility] [address], [place], [address], 07/03/2024 14:00:59 07/02/19 25 07/02/2024 COMPR EHENS CINDY METAB OLIC PANEL albumin 4.1 gm/dL 3.5-5. 2 Not Available [facility] [address] [facility] [address], [place], [address], 07/03/2024 14:00:59 07/02/19 25 07/02/2024 COMPR EHENS CINDY METAB OLIC PANEL bilirubin, total 0.50 mg/dL 0.00-1 .20 Not Available [facility] [address] [facility] [address], [place], [address], 07/03/2024 14:00:59 07/02/19 25 07/02/2024 COMPR EHENS CINDY METAB OLIC PANEL alkaline phosphatase (ALP) 109 U/L 39-117 Not Available [facility] [address] [facility] [address], [place], [address], 07/03/2024 14:00:59 07/02/19 25 07/02/2024 COMPR EHENS CINDY METAB OLIC PANEL aspartate aminotransfe rase (AST) 10 U/L 0-40 Not Available [facility] [address] [facility] [address], [place], [address], 07/03/2024 14:00:59 07/02/19 25 07/02/2024 COMPR EHENS CINDY METAB OLIC PANEL alanine aminotransfe rase (ALT) 6 U/L 0-41 Not Available [address], [place], [address], 07/03/2024 14:00:59 07/02/19 25 07/02/2024 COMPR EHENS CINDY METAB OLIC PANEL A/G ratio (calculated) 1.8 ratio 1.0-2. 7 Not Available [facility] [address] [facility] [address], [place], [address], 07/03/2024 14:00:59 07/02/19 25 07/02/2024 COMPR EHENS CINDY METAB OLIC PANEL globulin (calculated) 2.3 gm/dL 1.5-3. 8 Not Available [facility] [address] [facility] [address], [place], [address], 07/03/2024 14:00:59 07/02/19 25 07/02/2024 COMPR EHENS CINDY METAB OLIC PANEL BUN/creatini ne ratio (calculated) 10.8 ratio 8.0-20 .0 Not Available [facility] [address] [facility] [address], [place], [address], 07/03/2024 14:00:59 07/02/19 25 07/02/2024 COMPR EHENS CINDY METAB OLIC PANEL serum hemolysis index Normal index normal Not Available [facility] [address] [facility] [address], [place], [address], 07/03/2024 14:00:59 07/02/19 25 07/02/2024 FREE T3 triiodothyro nine (T3), free 2.98 pg/mL 2.00-4 .40 NOTE: REFER ENCE RANGE S FOR PATIE NTS < 16 YEARS OF AGE HAS NOT BEEN VALID ATED. FOR INFOR MATIO N ONLY. PREGN ANT FEMAL E: 1st Trime ster: 1.6-3 .3 pg/mL 2nd Trime ster: Not Estab lishe d 3rd Trime ster: 1.0-3 .2 pg/mL Not Available [facility] [address] [facility] [address], [place], [address], 07/03/2024 14:01:00 07/02/19 25 07/02/2024 FREE T4 thyroxine (T4), free 1.07 NG/dL 0.82-1 .77 Not Available [facility] [address] [facility] [address], [place], [address], 07/03/2024 14:01:01 07/02/19 25 07/02/2024 LIPID PANEL W/ CALC. LDL cholesterol, total 124 mg/dL 100-19 9 Not Available [facility] [address] [facility] [address], [place], [address], 07/03/2024 14:01:02 07/02/19 25 07/02/2024 LIPID PANEL W/ CALC. LDL HDL cholesterol 34 mg/dL =>40 Not Available [facility] [address] [facility] [address], [place], [address], 07/03/2024 14:01:02 07/02/19 25 07/02/2024 LIPID PANEL W/ CALC. LDL LDL cholesterol (calculated) 77 mg/dL 0-99 Not Available [facility] [address] [facility] [address], [place], [address], 07/03/2024 14:01:02 07/02/19 25 07/02/2024 LIPID PANEL W/ CALC. LDL triglyceride s 64 mg/dL 50-149 Not Available [facility] [address] [facility] [address], [place], [address], 07/03/2024 14:01:02 07/02/19 25 07/02/2024 LIPID PANEL W/ CALC. LDL chol/HDL ratio (calculated) 3.65 ratio 0.00-5 .00 Not Available [place] [id number] [facility] [address], [place], [address], 07/03/2024 14:01:02 07/02/19 25 07/02/2024 LIPID PANEL W/ CALC. LDL VLDL cholesterol (calculated) 13 mg/dL 5-40 Not Available [facility] [address] [place] [address] [address], [place], [address], 07/03/2024 14:01:02 07/02/1907/02/2024 PROST ATE-S PECIF IC ANTIG EN (PSA) , TOTAL (DIAG NOSTI C) prostate-spe cific antigen, total 7.0 NG/mL 0.0-4. 0 high Selena ECLIA METHO DOLOG Y. RESUL TS FROM THIS METHO D IS NOT SHAHID TIBLE WITH DIFFE RENT ASSAY METHO D AND CANNO T BE USED INTER FRANKS EABLY . Not Available [facility] [address] [facility] [address], [place], [address], 07/03/2024 14:01:02 07/02/1907/02/2024 THYRO ID-ST IM. HORMO NE (TSH) thyroid-stim . hormone (TSH) 0.31 uIU/m L 0.27-4 .20 Not Available [facility] [address] [facility] [address], [place], [address], 07/03/2024 14:01:03 02/01/20 23 02/07/2023 elect rocar diogr am No observ ation record ed. [facility], [facility] [address], [place], [address], 05/30/2023 10:29:08 02/01/20 23 01/31/2023 elect rocar diogr am No observ ation record ed. Not Available 2022 10:29:09 04/04/[address] [facility] [address] [place] [address] Orderi ng Provid er: GARIMA MÉNDEZ Examin ation: CTA_PE _[id number] (ADULT ) Clinic al histor y: Elevat ed d-dime r, shortn ess of breath Compar diogenes: 021 (avail able only at the time of final report dictat ion). DATE/T MIGUEL: 02/07/20 23 2:12 PM Techni que: Multip lanar images of the chest were obtain ed follow ing the uneven tful intrav enous admini strati on of 80 mL Isovue 370. 3D Post-p rocess ed images were recons tructe d on an indepe ndent workst ation. A dose loweri ng techni que was used for this proced ure, which may includ e, but is not limite d to, dose reduct ion techni que, automa umu exposu re contro l, the use of iterat cindy recons tructi on, and ALARA (As Low As Reason ably Achiev able) / Image Gently techni ques. Findin gs: There is adequa te pulmon aaron artery opacif icatio n. No eviden ce of pulmon aaron emboli sm identi fied. Heart size is normal . Thorac ic aorta is normal calibe r. Few regalado ry artery calcif icatio ns. No perica rdial effusi on. No medias tinal or hilar lympha denopa thy. There are calcif ied lymph nodes. Mild diffus e thyrom egaly. 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 No pulmon aaron consol idatio n, pleura l effusi on or pneumo thorax . Calcif ied granul jay left lower lobe superi or segmen t. There is a 2 mm noncal cified nodule in the anteri or left upper lobe, series 8 image 45 of 169. Review ing the old [address] (avail able only at the time of final report dictat ion), this is unchan ged since 2020 consis tent with benign etiolo gy. No routin e follow -up necess aaron per [employer] guidel claricejohn r given the emphys herminia, patien t may benefi t from annual low-do se lung cancer screen ing CT going forwar d depend ing on smokin g histor y, correl ate clinic ally. Large left renal cyst is partia lly includ ed, measur ing at least 8 cm in size. The includ ed portio n appear s simple . No routin e follow -up is necess aaron for simple cyst, howeve r as this lesion is partia lly includ ed would sugges t follow -up ultras ound to rule out any nonvis ualize d comple x compon ents. Thorac ic spondy losis. No acute osseou s abnorm ality. IMPRES LAMINE: 1. No eviden ce of pulmon aaron emboli sm or other acute chest findin gs. 2. Emphys herminia. 3. Other chroni c or nonurg ent findin gs as descri bed above. Date and Time of Prelim Result s: 02/07/20 23 2:30 PM The final report for your radiol ogy exam was delaye d due to a prolon ged system wide outage of the hospit al inform ation techno logy infras tructu re. The necess aaron compon ents to render a final report utiliz ing a secure and persis tent connec tion to the hospit al inform ation techno logy infras tructu re within the usual parame ters as guided by zacarias thorne rds of care were signif icantl y limite d or unavai lable. These compon ents includ e but are not limite d to: all images for the exam, medica l grade displa y monito r, medica l grade displa y softwa re, image post-p rocess ing softwa re, prior examin ations , prior report s, access to your medica l record s, dictat ion softwa re, and a DICOM signat ure to ensure validi ty. Referr ed By: GARIMA MÉNDEZ Electr onical ly Signed By: Bernardo Ricardo MD on 023 2:38 PM Interp reted By: Bernardo Ricardo MD, 023 2:[address] 1 [facility], [place], [address], 05/30/2023 10:29:08 06/02/20 23 US, retro perit oneum , compl ete [facility] [address] Orderi ng Provid er: GARIMA MÉNDEZ IMAGIN G STUDIE S: US RETROP ERITON EAL COMP DATE: 2022 1:24 PM CLINIC AL HISTOR Y: CYST OF KIDNEY , ACQUIR ED. FINDIN GS: Correl ation with CT of the chest of 02/07/20 23 and 021 1. RIGHT KIDNEY MEASUR ES 9.9 x 4.8 x 3.9 cm. 2. LEFT KIDNEY MEASUR ES 10.7 x 5.6 x 6.5 cm. 3. No eviden ce of hydron ephros is or focal solid renal mass.. . Grossl y stable appear ance to simple appear ing well-d efined cyst in the upper pole right kidney measur ing 1.2 x 1.1 x 1.1 cm. This was noted on prior above- stated CT in 2020.. Slight ly comple x nonvas cular cyst within the latera l mid right kidney measur ing 1.4 x 1.0 x 1.4 cm. This is out of the plane of imagin g on above- stated CT chest. Follow -up exam in 6 months . Large simple appear ing cyst projec umu off the mid to lower left kidney measur ing 9.7 x 6.1 x 9.7 cm.. Urinar y bladde r withou t focal mass. Bilate ral ureter al jets noted. IMPRES LAMINE:. No eviden ce of hydron ephros is. Large simple appear ing left-s ided renal cyst. Simple appear ing cyst in upper pole right kidney . Follow -up ultras ound in 6 months to reasse ss comple x nonvas cular cyst within the right kidney as detail ed above. Referr ed By: GARIMA Thacker onical ly Signed By: Ignacio Giles MD on 2022 8:39 PM Interp reted By: Ignacio Giles MD, 2022 8:32 PM [email or web address] [facility] 1 [facility], [place], [address], 06/12/2023 17:54:54 06/17/19 24 US, thyro id . [facility] [address] Orderi ng Provid er: GARIMA [facility] Exam: Thyroi d ultras ound Access ion: [id number] Exam date and time: 024 8:52 AM Indica tion: 73 male. Provid ed reason for exam is, nontox ic single thyroi d nodule . Thyrom egaly report ed on CT chest imagin g Compar diogenes: CTA chest 02/07/20 Techni que: Graysc kevin and color flow ultras ound examin ation of the thyroi d gland was perfor med. Ultras ound findin gs: Right lobe: Size: Measur es 7.6 X 3.3 X 2.6 cm. Parenc hyma: Homoge neous echote xture. Normal echoge nicity and vascul arity. Nodule (s): 1. Single Centra l hypoec hoic solid 0.9 x 0.5 and 0.7 cm. TR 4 2. Abdulaziz medial hypoec hoic solid 0.7 x 0.6 x 0.5 cm. TR 4. 3. Inferi or hypoec hoic solid 0.8 x 0.8 x 1.0 cm. TR 4 Left lobe: Size: Measur es 6.5 x 3.5 x 2.6 cm Parenc hyma: Homoge neous echote xture. Normal echoge nicity and vascul arity. Nodule (s): 1. Supplies Packer ior hypoec hoic solid 0.7 x 0.8 x 0.7 cm. TR 4 Isthmu s: 14.6 mm in thickn ess (AP). Isoech oic solid 0.6 cm. TR 3 =====I MPRESS ION:== === 1. 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 2. Right thyroi d lobe 1 cm TR 4 nodule . Recomm endati on: Ultras ound follow -up 1, 2, 3 and 5 years 3. Couple of additi onal bilate ral subcen timete r nodule s do not meet imagin g criter ia for sampli ng or follow -up. ACR TI-RAD S recomm endati ons: TR5, highly suspic ious (great er than or equal to 7 points ) - FNA if greate r than or equal to 1 cm, follow -up if 0.5-0. 9 cm every year for 5 years TR4, modera tely suspic ious (4-6 points ) - FNA if greate r than or equal to 1.5cm, follow -up if 1-1.4 cm in 1, 2, 3 and 5 years TR3, mildly suspic ious (3 points ) - FNA if greate r than or equal to 2.5cm, follow -up if 1.5-2. 4 cm in 1, 3 and 5 years TR2, not suspic ious (2 points ) and TR1, benign (0 points ) - No FNA or follow -up * ACR TI-RAD S recomm ends no more than two nodule s with the highes t ACR TI-RAD S total point should be biopsi ed and no more than four nodule s should be follow ed. ACR TI-RAD S (Thyro id Imagin g and Report ing Data System ) is a struct ured system for interp reting and report ing thyroi d imagin g studie s with manage ment najma oneil. https: //www. acr.or g/Clin ical-R esourc es/Rep orting -and-D minerva-Sy stems/ TI-RAD S Ordere d By: GARIMA Thacker onical ly Signed By: Geoff Blackmon MD on 9:45 AM Interp reted By: Geoff Blackmon MD, 9:40 AM [email or web address] [facility] 1 [place], [address], 06/26/2023 17:58:11 12/10/19 24 12/10/2023 XR, knee, 3 view No observ ation record ed. [address] Central Scheduling 1 [place], [address], 01/10/2024 14:30:30 12/22/19 24 XR, lumba r spine No observ ation record ed. [address] Central Scheduling 1 [place], [address], 01/10/2024 14:30:30 12/22/19 24 XR, ribs, unila teral , w/ PA chest No observ ation record ed. [address] Central Scheduling 1 [facility], [place], [address], 01/10/2024 14:30:30 12/24/19 24 12/24/2023 US, scree kelsey for abdom inal aorti c aneur ysm No observ ation record ed. [address] Patient Access Centralized Scheduling Centralized Scheduling [address] [place], [address], 01/10/2024 14:30:29 12/26/19 24 12/24/2023 US, thyro id No observ ation record ed. [place] [id number] [facility] [address], [place], [address], 01/10/2024 14:30:29 12/26/19 24 LDCT, chest , for lung cance r scree kelsey No observ ation record ed. [address] Patient Access Centralized Scheduling Centralized Scheduling [address], [place], [address], 01/10/2024 14:30:29 01/30/20 24 01/30/2024 US, doppl er, arter ial No observ ation record ed. [place] [id number], [place], [address], 06/25/2024 13:37:11 Result Notes None recorded. Problems Name Problem SNOMED Code Status Onset Date Resolution Date Notes Provider Name and Address Organization Details Recorded Time Chest pain 00841563 Active 2022 Garima Méndez MD [address], [place], [address], [place] [facility] 3 19:07:36 Herpes zoster 6280401 Active 2022 Garima Méndez MD [address], [place], [address], [facility] 3 19:10:24 Serum creatinine above reference range 872924538 Active 2022 Garima Méndez MD [address], [place], [address], [facility] 3 19:10:24 Hyperglycemia 84255955 Active 2022 Garima Méndez MD [address], [place], [address], [facility] 3 19:10:24 Goiter 1599986 Active 2022 Garima Méndez MD [address], [place], [address], [facility] 3 19:10:24 Dyspnea 869032939 Active 2022 Garima Méndez MD [address], [place], [address], [facility] 3 19:10:24 Impaired glucose tolerance 0773741 Active 2022 Garima Méndez MD [address], [place], [address], [facility] 3 19:12:51 Thyroid nodule 999727409 Active 2022 Garima Méndez MD [address], [place], [address], [facility] 3 17:06:49 Nicotine dependence with current use 395598332 Active 2022 Garima Méndez MD [address], [place], [address], [facility] 3 17:08:17 Atherosclerosi s of aorta 64398392 Active 2022 Garima Méndez MD [address], [place], [address], [facility] 3 17:08:56 Primary erectile dysfunction 841538110 Active 2022 Garima Méndez MD [address], [place], [address], [facility] 3 17:11:14 Prostate specific antigen outside reference range 589997391 Active 2022 Garima Méndez MD [address], [place], [address], [facility] 3 07:25:51 Hyperlipidemia 54710068 Active 2022 Garima Méndez MD [address], [place], [address], [facility] 3 23:50:13 Chronic obstructive pulmonary disease 48532406 Active 2022 Garima Méndez MD [address], [place], [address], [facility] 3 12:20:14 Cyst of kidney 989516708 Active 2022 Garima Méndez MD [address], [place], [address], [facility] 3 22:12:53 Peripheral vascular disease 804228379 Active 2022 Garima Méndez MD [address], [place], [address], [facility] 3 23:14:13 Problem Notes None recorded. Procedures Surgical History None recorded. Imaging Results Imaging Date Name Status LastModified by Organization Details LastModified Time 02/07/2023 electrocardiogram completed [facility], [facility] [address], [place], [address], 05/30/2023 10:29:08 01/31/2023 electrocardiogram completed Informa tion not available 05/30/2023 10:29:09 04/04/2023 cta chest completed [address], [place], [address], 05/30/2023 10:29:08 06/02/2023 US, retroperitoneum, complete completed [email or web address] [facility] 1 [facility], [place], [address], 06/12/2023 17:54:54 06/17/2023 US, thyroid completed [email or web address] [facility] 1 [facility], [place], [address], 06/26/2023 17:58:11 12/10/2023 XR, knee, 3 view completed [address] Central Scheduling 1 [facility], [place], [address], 01/10/2024 14:30:30 12/22/2023 XR, lumbar spine completed [address] Central Scheduling 1 [facility], [place], [address], 01/10/2024 14:30:30 12/22/2023 XR, ribs, unilateral, w/ PA chest completed [address] Central Scheduling 1 [facility], [place], [address], 01/10/2024 14:30:30 12/24/2023 US, screening for abdominal aortic aneurysm completed [address] Patient Access Centralized Scheduling Centralized Scheduling [address] [place], [address], 01/10/2024 14:30:29 12/24/2023 US, thyroid completed [address], [address], 01/10/2024 14:30:29 12/26/2023 LDCT, chest, for lung cancer screening completed [address] Patient Access Centralized Scheduling Centralized Scheduling [address] [place], [address], 01/10/2024 14:30:29 01/30/2024 US, doppler, arterial completed [facility] [address], [place], [address], 06/25/2024 13:37:11 Procedure Notes None recorded. Medical Equipment None Reported. Allergies No known drug allergies Medications Name Sig Start Date Stop Date Status Note LastModified by Organization Details LastModified Time cyclobenzap rine 10 mg tablet TAKE 0.5 TO 1 TABLET BY MOUTH 2 TIMES A DAY 06/25 completed Not Available Not Available Not Available valacyclovi r 1 gram tablet TAKE 1 TABLET BY MOUTH THREE TIMES A DAY active Not Available Not Available No t Available tramadol 50 mg tablet TAKE 1 TABLET W/ 1 TABLET OF TYLENOL 500 MG ONCE A DAY, UP TO TWICE A DAY NEEDED 05/30 completed Not Available Not Available Not Available sildenafil 100 mg tablet TAKE 1 TABLET BY MOUTH ONCE DAILY NEEDED active Not Available Not Available No t Available triamcinolo ne acetonide 0.1 % topical cream APPLY THIN COAT TOPICALLY TO THE AFFECTED AREA(S) TWICE A DAY 01/31 completed Not Available Not Available Not Available gabapentin 300 mg capsule TAKE 1 CAPSULE BY MOUTH 1 HOUR BEFORE TO BEDTIME. CAN CAUSE DROWSINES S THE NEXT DAY 01/31 completed Not Available Not Available Not Available methylpredn isolone 4 mg tablets in a dose pack TAKE 6 TABLETS ON DAY 1 DIRECTED ON PACKAGE AND DECREASE BY 1 TAB EACH DAY FOR A TOTAL OF 6 DAYS 01/09 completed Not Available Not Available Not Available rosuvastati n 5 mg tablet TAKE 1 TABLET BY MOUTH EVERY DAY IN THE EVENING active Not Available Not Available No t Available duloxetine 30 mg capsule,del ayed release TAKE 1 CAPSULE BY MOUTH ONCE A DAY FOR 10 DAYS THEN 2 CAPS DAILY THEREAFTE R 01/31 completed -- on 60 mg a day Not Available Not Available Not Available duloxetine 60 mg capsule,del ayed release Take 1 capsule every day by oral route. 01/31 completed Not Available Not Available Not Available Amadoutri Aerosphere 160 mcg-9mcg-4. 8mcg/actuat ion HFA aerosol inhaler Inhale 2 puffs twice a day by inhalatio n route. active Not Available Not Available No t Available Vitals Date Recorded Body height Body mass index (BMI) Body weight Respiratory rate Body temperature Heart rate Systolic blood pressure Diastolic blood pressure Provider Name and Address Organization Details Last Updated DateTime 3 177.8 cm 25.5 kg/m2 67132.4 4 g 16 /min 98.1 [degF] 64 /min 135 mm[Hg] 64 mm[Hg] Helen Baker [facility] 3 16:33:23 Date Recorded Body height Heart rate Respiratory rate Body temperature Body mass index (BMI) Body weight Systolic blood pressure Diastolic blood pressure Provider Name and Address Organization Details Last Updated DateTime 3 177.8 cm 74 /min 16 /min 97.8 [degF] 25.4 kg/m2 18859.8 5 g 154 mm[Hg] 68 mm[Hg] [facility] 09:13:21 Date Recorded Body height Body mass index (BMI) Body weight Respiratory rate Body temperature Heart rate Systolic blood pressure Diastolic blood pressure Provider Name and Address Organization Details Last Updated DateTime 4 177.8 cm 23.4 kg/m2 10775.5 6 g 16 /min 98 [degF] 71 /min 113 mm[Hg] 67 mm[Hg] Fatimah Méndez [facility] 4 11:03:04 Date Recorded Body height Heart rate Respiratory rate Body temperature Body mass index (BMI) Body weight Systolic blood pressure Diastolic blood pressure Provider Name and Address Organization Details Last Updated DateTime 4 177.8 cm 65 /min 16 /min 97.6 [degF] 22.8 kg/m2 67816.1 9 g 162 mm[Hg] 61 mm[Hg] Helen Baker [facility] 4 13:43:41 Date Recorded Body height Heart rate Respiratory rate Body temperature Body mass index (BMI) Body weight Systolic blood pressure Diastolic blood pressure Provider Name and Address Organization Details Last Updated DateTime 5 177.8 cm 61 /min 16 /min 97.4 [degF] 23.4 kg/m2 51692.5 6 g 166 mm[Hg] 70 mm[Hg] Helen Baker [facility] 5 12:39:48 Social History Question Answer Notes LastModified by Organizat ion Details LastModified Time Tobacco Smoking Status Former Smoker quit 05/2020 [facility] 10/11/2020 14:20:48 Do You Have An Advance Directive? No Information not available 10/11/2020 What Is Your Level Of Alcohol Consumption? Occasional Information not available 10/11/2020 What Is Your Level Of Caffeine Consumption? Moderate Information not available 10/11/2020 What Is Your Code Status? DNR Information not available 10/11/2020 Commercial Sex Work No Information not available 10/11/2020 In The 14 Days Before Symptom Onset, Have You Had Close Contact With A Laboratory-confir med COVID-19 While That Case Was Ill? No Information not available 10/11/2020 In The 14 Days Before Symptom Onset, Have You Had Close Contact With A Person Who Is Under Investigation For COVID-19 While That Person Was Ill? No Information not available 10/11/2020 Have You Been To An Area Known To Be High Risk For COVID-19? No Information not available 10/11/2020 Are You Currently Employed? Yes Information not available 10/11/2020 What Type Of Diet Are You Following? REGULAR Information not available 10/11/2020 Have You Directly Handled Bats, Rodents, Or Primates From Ebola Endemic Areas? No Information not available 10/11/2020 Have You Processed Blood Or Body Fluids From An Ebola Virus Disease Patient Without Appropriate PPE? No Information not available 10/11/2020 Have You Had Household Contact With An Ebola Virus Disease Patient? No Information not available 10/11/2020 Have You Had Direct Contact With A Body In An Ebola-affected Area Without Appropriate PPE? No Information not available 10/11/2020 Have You Had Percutaneous (e.g. Needle Stick) Or Mucous Membrane Exposure To Blood Or Body Fluids From An Ebola Virus Disease Patient? No Information not available 10/11/2020 Have You Had Other Close Contact With An Ebola Virus Disease Patient In Health Care Facilities Or Community Settings? No Information not available 10/11/2020 Do You Reside In Or Have You Traveled To An Area Where Ebola Virus Transmission Is Active? No Information not available 10/11/2020 Do You Or Have You Ever Used E-cigarettes Or Vape? Never Used Electronic Cigarettes Information not available 10/11/2020 Hard Of Hearing Or Deaf In One Or Both Ears? No Information not available 10/11/2020 High Number Of Sexual Partners No Information not available 10/11/2020 History Of Inconsistent/no Condom Use No Information not available 10/11/2020 Legally Blind In One Or Both Eyes? No Information no t available 10/11/2020 Live Alone Or With Others? With Others Information not available 10/11/2020 Marital Status Informatio n not available 10/11/2020 What Was The Date Of Your Most Recent Tobacco Screening? 06/25/2024 mbenfer Information not available 06/25/2024 Mother With HIV? No Informat ion not available 10/11/2020 Performs Monthly Self-breast Exam? No Information no t available 10/11/2020 Seat Belts Used Routinely Yes Information not available 10/11/2020 Sexual Partner Has HIV? No Information not available 10/11/2020 Sexual Partner Uses IV Drugs? No Information not available 10/11/2020 Smoke Alarm In Home Yes Information not available 10/11/2020 At What Age Did You Start Smoking Tobacco? 14 Information not available 10/11/2020 Are You Passively Exposed To Smoke? Yes Information no t available 10/11/2020 Do You Or Have You Ever Used Smokeless Tobacco? Never Used Smokeless Tobacco Information not available 10/11/2020 How Much Tobacco Do You Smoke? 1 PPD Information not available 10/11/2020 General Stress Level Medium Information not available 10/11/2020 How Many Years Have You Smoked Tobacco? 56 Information not available 10/11/2020 Have You Used IV Drugs? No Information not available 10/11/2020 Sex: Unknown Functional Status Question Answer Note LastModified by Organization D etails LastModified Time Are you able to care for yourself? Yes Information n ot available 10/11/2020 What is your exercise level? None Information not available 10/11/2020 Mental Status None recorded. Family History Nothing Reported. Medical History No medical history recorded. Immunizations Vaccine Type Date Status Note Provider Nam e and Address Organization Details Recorded Time Pneumococcal conjugate PCV 13 1 completed Garima Méndez MD [address], [place], [address], [facility] 02/20/2021 20:46:54 COVID-19, mRNA, LNP-S, PF, 30 mcg/0.3 mL dose 1 completed Garima Méndez MD [address], [place], [address], [facility] 02/20/2021 20:46:54 COVID-19, mRNA, LNP-S, PF, 30 mcg/0.3 mL dose 1 completed Garima Méndez MD [address], [place], [address], [facility] 02/20/2021 20:46:54 Past Encounters Encounter ID Performer Location Encounter Start Date Encounter Closed Date Diagnosis/Indication Diagnosis SNOMED-CT Code Diagnosis ICD10 Code Diagnosis Note [id number] Garima Méndez MD [facility], [facility] [address] [place] [address] 10/11/2020 13:32:14 10/11/2020 15:36:50 Dyspnea 379577758 R06.00 Fatigue 10577177 R53.83 Hepatitis C screening 41 9205573 Z11.59 Body mass index 25-29 - overweight 162854320 Z68.29 -- will advise weight loss -- pt's BMI today is 29.4 (ideal is between 20-25) Active or passive immunization 784545395 Z23 Screening for malignant neoplasm of colon 219057559 Z12.11 -- Pt reports today 10/11/20 that he will not get the Colonoscop y. Screening for malignant neoplasm of prostate 515987628 Z12.5 Hyperlipid emia screening 073067551 Z13.220 Ex-smoker 2564287 Z87.89 1 (Quit May 2020) -- will CTA of chest if D-dimer is abnormal since pt has SIU [id number] Garima Méndez MD [employer] [employer] [address] [place] [address] 11/01/2020 15:28:41 11/01/2020 18:11:04 Adult health examination 278217249 Z00.00 Dyspnea 645844761 R06.00 -- spirometry and EKG done on 10/11/20 Body mass index 25-29 - overweight 153233224 Z68.29 -- will advise weight loss; pt lost 2 # since his last visit -- pt's BMI today is 29.1 (ideal is between 20-25) Ex-smoker 3335326 Z87.89 1 (Quit May 2020) -- no lung nodules on Chest CTA on 10/17/20 -- no AAA on u/s done on 10/14/20 Hyperlipid emia screening 192068310 Z13.220 -- good lipid panel on 10/12/20 Hepatitis C screening 41 1164008 Z11.59 -- tested negative for Hep C on 10/12/20 Active or passive immunization 920860136 Z23 Screening for malignant neoplasm of colon 458096730 Z12.11 -- Pt reports today 10/11/20 that he will not get the Colonoscop y. -- cologuard tested normal on 10/24/20 Prostate s pecific antigen outside reference range 480012254 R97.8 -- will refer pt to Urologist for eval of elevated PSA of 5.6 Hyperglycemia 81731911 R 73.9 -- recheck lab(s) around 03/02/21 Serum crea tinine above reference range 898949966 R79.89 -- need to avoid any otc pain meds: like Ibuprofen /motrin /advil /Aleve /Naproxen /etc. Inform patient to increase and maintain fluids to over 64 fluid ounces daily. -- recheck lab(s) around 03/02/21 Goiter 0167575 E04.9 (evident on thyroid u/s done on 10/26/20) -- recheck lab(s) around 03/02/21 [id number] Garima Méndez MD [employer] [employer] [facility] [address] [place] [address] 01/09/2021 17:43:27 01/09/2021 19:57:57 Herpes zoster 4798096 B02.9 (left chest and left back) -- see photo Serum crea tinine above reference range 101708940 R79.89 -- need to avoid any otc pain meds: like Ibuprofen /motrin /advil /Aleve /Naproxen /etc. Inform patient to increase and maintain fluids to over 64 fluid ounces daily. -- recheck lab(s) around 03/02/21 Hyperglycemia 51151745 R 73.9 -- recheck lab(s) around 03/02/21 Goiter 8737572 E04.9 (evident on thyroid u/s done on 10/26/20) -- recheck lab(s) around 03/02/21 Dyspnea 901012365 R06.00 -- spirometry and EKG done on 10/11/20-- will issue Trelegy since Breztri cause gas and GERD [id number] Garima Méndez MD [facility], [facility] [address] [place] [address] 06/25/2022 16:17:49 06/25/2022 19:31:05 Adult health examination 372570249 Z00.00 -- check lab(s) within 7 days from 06/25/22 Chest pain 85755532 R07. 9 -- check lab(s) within 7 days from 06/25/22-- high risk for CVD (will refer for eval)-- pt does not Herpes zoster 9421392 B0 2.9 (left chest and left back)-- healed w/ hyperpigme ntatin Serum crea tinine above reference range 357636578 R79.89 -- inform pt to avoid any otc pain meds: like Ibuprofen (Motrin /Advil), & Naproxen (Aleve) or other pain meds by other physician/ health providers. -- inform patient to increase and maintain fluids to over 64 fluid ounces daily.-- check lab(s) within 7 days from 06/25/22 Goiter 7381355 E04.9 (evident on thyroid u/s done on 10/26/20) -- check lab(s) within 7 days from 06/25/22 Dyspnea 185062741 R06.00 -- spirometry and EKG done on 10/11/20-- c/w COPD-- will issue Trelegy since Breztri cause gas and GERD Impaired g lucose tolerance 6324937 R73.03 -- check lab(s) within 7 days from 06/25/22 Body mass index 25-29 - overweight 360764212 Z68.26 -- will advise weight loss; pt lost 16 # since his last visit -- pt's BMI today is 26.3(ideal is between 20-25) Hepatitis C screening 41 4873323 Z11.59 -- tested negative for Hep C on 10/12/20 HIV screening 371279485 Z11.4 -- check lab(s) within 7 days from 06/25/22 Active or passive immunization 548995132 Z23 Screening for malignant neoplasm of colon 202526174 Z12.11 -- Pt reports today 10/11/20 that he will not get the Colonoscop y. -- cologuard tested normal on 10/24/20 Screening for malignant neoplasm of prostate 201203373 Z12.5 -- check lab(s) within 7 days from 06/25/22 [id number] Garima Méndez MD [facility] [address] [place] [address] 01/31/2023 14:57:40 01/31/2023 17:27:22 Chest pain 82515845 R07.9 -- high risk for CVD (will refer for eval) Thyroid nodule 149088479 E04.1 Nicotine d ependence with current use 319854225 F17.210 -- will order CheSt CTA Atheroscle rosis of aorta 03740566 I70.0 Primary er ectile dysfunction 920680256 N52.9 At low risk for fall 439 632154 Z91.81 -- no unsteady balance or gait problems-- have not fallen for over-- no fear of falling or falling tendency Active or passive immunization 807686349 Z23 Screening for malignant neoplasm of colon 105649250 Z12.11 -- Pt reports today 10/11/20 that he will not get the Colonoscop y. -- cologuard tested normal on 10/24/20 Screening for malignant neoplasm of prostate 880900801 Z12.5 -- check lab(s) within 7 days from 06/25/22 [id number] Garima Méndez MD [facility] [address] [place] [address] 05/30/2023 08:39:34 05/30/2023 10:29:13 Chest pain 98120279 R07.9 -- high risk for CVD (will refer for eval)-- asymptomat ic Thyroid nodule 095006116 E04.1 Nicotine d ependence with current use 659313098 F17.210 -- need to repeat Chest CT around Apr 03 2024 -- advised to quit smoking because of increased risks for stroke, heart attacks, cancers, COPD (emphysema /chronic bronchitis ), aneurysm and premature . Atheroscle rosis of aorta 58498398 I70.0 -- need to keep LDL cholestero l 69 or less Primary er ectile dysfunction 811501451 N52.9 At low risk for fall 439 482502 Z91.81 -- no unsteady balance or gait problems-- have not fallen for over-- no fear of falling or falling tendency Active or passive immunization 627730226 Z23 -- pt does not want Flu shot Screening for malignant neoplasm of colon 421668152 Z12.11 -- Pt reports today 10/11/20 that he will not get the Colonoscop y. -- cologuard tested normal on 10/24/20 Screening for malignant neoplasm of prostate 949361968 Z12.5 -- PSA of 6.0 (02/05/23) Prostate s pecific antigen outside reference range 406498772 R97.8 -- will refer pt to Urologist for eval of elevated PSA of 5.6-- pt was referred to [facility] but got a call that said they do not accept his [employer] insurance. Consequent ly pt did not do anything.- - advise pt to call his [employer] insurance to find out which Urologist is on his plan and let me know.-- In the meantime, I will refer him to another Urologist Peripheral vascular disease 393163299 I73.9 -- 'feet turned cold & purple sometimes' worse with walking but no pain [id number] Garima Méndez MD [facility] [address] [place] [address] 11/29/2023 09:47:44 11/29/2023 12:16:47 Adult health examination 900454458 Z00.00 -- check lab(s) within 7 days from 06/25/22 Prostate s pecific antigen outside reference range 775521499 R97.8 -- will refer pt to Urologist for eval of elevated PSA of 5.6-- pt was referred to [facility] but got a call that said they do not accept his [employer] insurance. Consequent ly pt did not do anything.- - advise pt to call his [employer] insurance to find out which Urologist is on his plan and let me know.-- In the meantime, I will refer him to another Urologist Chest pain 92154896 R07. 9 -- high risk for CVD (will refer for eval)-- asymptomat ic Thyroid nodule 614017978 E04.1 Rt thyroid nodule-- inform pt that Radiologis t recommends repeating thyroid Ultrasound follow-up at 1, 2, 3 and 5 years [facility], 06/17/23. Atheroscle rosis of aorta 21312143 I70.0 -- need to keep LDL cholestero l 69 or less Peripheral vascular disease 870372819 I73.9 -- 'feet turned cold & purple sometimes' worse with walking but no pain Nicotine d ependence with current use 734769977 F17.210 -- need to repeat Chest CT around Apr 03 2024 -- advised to quit smoking because of increased risks for stroke, heart attacks, cancers, COPD (emphysema /chronic bronchitis ), aneurysm and premature . Primary er ectile dysfunction 386233642 N52.9 At low risk for fall 439 044048 Z91.81 -- no unsteady balance or gait problems-- have not fallen for over-- no fear of falling or falling tendency Active or passive immunization 885098346 Z23 -- pt does not want Flu shot Screening for malignant neoplasm of colon 070654251 Z12.11 -- Pt reports today 10/11/20 that he will not get the Colonoscop y. -- cologuard tested normal on 10/24/20 Screening for malignant neoplasm of prostate 918026879 Z12.5 -- PSA of 6.0 (02/05/23) Unsteady when walking 22 448583 R26.89 Left flank pain 46414999 9 R10.9 Lumbar radiculopathy 128 642399 M54.16 Pain of ri ght knee joint 2030868356 41263 M25.561 [id number] Garima Méndez MD [facility] [address] [place] [address] 01/10/2024 11:43:04 01/10/2024 14:29:54 Unsteady when walking 18135247 R26.89 -- awaiting MRI scan-- will refer pt to [facility] as pt now has [employer] and cannot see physician at [facility]. Left flank pain 98760411 9 R10.9 (after fall) -- resolved Lumbar radiculopathy 128 805201 M54.16 -- resolved Pain of ri ght knee joint 6878967597 48896 M25.561 -- pt declined PT Prostate s pecific antigen outside reference range 890263583 R97.8 -- will refer pt to Urologist for eval of elevated PSA of 5.6-- pt was referred to [facility] but got a call that said they do not accept his [employer] insurance. Consequent ly pt did not do anything.- - advise pt to call his [employer] insurance to find out which Urologist is on his plan and let me know.-- In the meantime, I will refer him to another Urologist Chest pain 62929220 R07. 9 -- high risk for CVD (will refer for eval)-- asymptomat ic Thyroid nodule 192682345 E04.1 Rt thyroid nodule-- inform pt that Radiologis t recommends repeating thyroid Ultrasound 1 year from 12/26/23 Atheroscle rosis of aorta 89205074 I70.0 -- need to keep LDL cholestero l 69 or less Peripheral vascular disease 345371392 I73.9 -- 'feet turned cold & purple sometimes' worse with walking but no pain Nicotine d ependence with current use 834480922 F17.210 -- need to repeat Chest CT around Apr 03 2024 -- advised to quit smoking because of increased risks for stroke, heart attacks, cancers, COPD (emphysema /chronic bronchitis ), aneurysm and premature .-- repeat chest LDCT 1 year from 12/26/23 Primary er ectile dysfunction 476376104 N52.9 At low risk for fall 439 825967 Z91.81 -- no unsteady balance or gait problems-- have not fallen for over-- no fear of falling or falling tendency Active or passive immunization 291543926 Z23 -- pt does not want Flu shot Screening for malignant neoplasm of colon 800831411 Z12.11 -- Pt reports today 10/11/20 that he will not get the Colonoscop y. -- cologuard tested normal on 10/24/20 Screening for malignant neoplasm of prostate 723561988 Z12.5 -- PSA of 6.0 (02/05/23) Chronic ob structive pulmonary disease 45888697 J44.9 [id number] Garima Méndez MD [facility] [address] [place] [address] 06/25/2024 11:02:26 06/25/2024 13:38:48 Chronic obstructive pulmonary disease 65108652 J44.9 Pain of ri ght knee joint 6175307120 58237 M25.561 -- pt declined PT-- pt reports he is currently following w/ Ortho at [facility] Prostate s pecific antigen outside reference range 478540270 R97.8 -- will refer pt to Urologist for eval of elevated PSA of 5.6-- pt was referred to [facility] but got a call that said they do not accept his [employer] insurance. Consequent ly pt did not do anything. Thyroid nodule 830982082 E04.1 Rt thyroid nodule-- inform pt that Radiologis t recommends repeating thyroid Ultrasound 1 year from 12/26/23 Atheroscle rosis of aorta 98360454 I70.0 -- need to keep LDL cholestero l 69 or less Peripheral vascular disease 101437735 I73.9 -- 'feet turned cold & purple sometimes' worse with walking but no pain Nicotine d ependence with current use 416243687 F17.210 -- need to repeat Chest CT around Apr 03 2024 -- advised to quit smoking because of increased risks for stroke, heart attacks, cancers, COPD (emphysema /chronic bronchitis ), aneurysm and premature .-- repeat chest LDCT 1 year from 12/26/23 Primary er ectile dysfunction 391333822 N52.9 At low risk for fall 439 127420 Z91.81 -- no unsteady balance or gait problems-- have not fallen for over-- no fear of falling or falling tendency Active or passive immunization 210287201 Z23 -- pt does not want Flu shot Screening for malignant neoplasm of colon 955383820 Z12.11 -- Pt reports today 10/11/20 that he will not get the Colonoscop y. -- cologuard tested normal on 10/24/20 Screening for malignant neoplasm of prostate 582026158 Z12.5 -- PSA of 6.0 (02/05/23) Intention tremor 2487317 6 G25.2 Hyperlipidemia 83664231 E78.5 Based on the current ASCVD risk calculatio n of 28.6% on 02/10/23, inform pt to: 1. -- advise pt to stop smoking 2. -- start Rosuvastat in 5 mg daily 3. -- recheck labs within 5 days from 06/25/24 Health Concerns Section Related Observation LastModified by Organization Detai ls LastModified Time None Recorded Concern Status LastModified by Organization Details LastModified Time None Recorded Advance Directives Directive N: Payers Encounter Date Sequence Insurance Name Policy Number Policy Humphries Covered Member ID Humphries Member ID Guarantor Name 01/31/2023 1 [employer] (MEDICARE REPLACEMENT/AD VANTAGE - PPO) [facility] [id number] [facility] 05/30/2023 1 [employer] (MEDICARE REPLACEMENT/AD VANTAGE - PPO) [id number] Germán L [facility] [id number] Germ[facility] [place] 11/29/2023 1 [employer] (MEDICARE REPLACEMENT/AD VANTAGE - PPO) [facility] Germán L [place] [id number] [facility] 01/10/2024 1 [employer] (MEDICARE REPLACEMENT/AD VANTAGE - PPO) [facility] Germán L [place] [id number] Germán [facility] [place] 06/25/2024 1 [employer] (MEDICARE REPLACEMENT HMO) [id number] [facility] [id number] Germán [facility] [place] Notes Date Note Type Note Provider Name and Address Organization Details Recorded Time 01/31/2023 text/html Pt comes in for exertional chest pain. Pain radiates to the back. Pain resolves when he sits and rest. No SOB but has tightness during chest pain. Pt feels well and has no c/o. Pt has no other sx and no increasing sx. Patient denies any jaw or neck discomfort, left arm pain/left arm discomfort, diaphoresis, breathing symptoms/chest tightness, indigestion sx, n/v, any angina equivalent symptoms, etc. Garima Méndez MD [address] [facility] [address], [place], [address], [facility] 01/31/2023 17:28:27 05/30/2023 text/html Pt comes in for f/u of chest pain, ^PSA (pt reported he had not done anything as he received a call from [facility] that they do not accept his insurance). Pt aslo here for f/u of atherosclerotic Aorta, and thyroid nodule. Pt feels well and has no c/o. Pt has no new sx and no increasing sx. Patient denies any jaw or neck discomfort, left arm pain/left arm discomfort, chest discomfort/pain, diaphoresis, breathing symptoms/chest tightness, indigestion sx, n/v, any angina equivalent symptoms, etc. Garima Méndez MD [address] [facility] [address], [place], [address], [facility] 05/30/2023 10:29:21 11/29/2023 text/html Medicare Annual Wellness VisitReported bypatient.Diet and Nutrition:healthy diet; discussed diet improvement Fracture Risk:no history of fractures; no recent explained fracture; no sudden unexplained fractures; no previous musculoskeletal injuries Physical Activity:discussed weightbearing activities; discussed exercise habits Depression Risk:never feels sad, empty, or tearful; no loss of interest in activities; no significant changes in weight; no sleep disturbances or insomnia; no agitation; no loss of energy; no feelings of worthlessness or guilt; no thoughts of suicide; no history of depression; no history of mood disorders Orientation:no disorientation to time; no disorientation to date; no disorientation to place Concentration and Memory:no decreased concentrating ability; no memory lapses or loss; does not forget words Speech/Motor difficulties:no speech difficulties; no difficulty expressing formulated concepts; no difficulty with fine manipulative tasks; no difficulty writing/copying; no slowed reaction time; does not knock things over when trying to pick them up Hearing:no loss of hearing Vision:no vision problems Activities of Daily Living:able to bathe with limited or no assistance; able to contol urination and bowels; able to dress with limited or no assistance; able to feed self with limited or no assistance; able to get out of chair or bed with limited or no assistance; able to groom with limited or no assistance; able to toilet with limited or no assistance Instrumental Activities of Daily Living:able to do house work with limited or no assistance; able to grocery shop with limited or no assistance; able to manage medications with limited or no assistance; able to manage money with limited or no assistance; able to prepare meals with limited or no assistance; able to use the phone with limited or no assistance Falls Risk Assessment:no frequent falls while walking; no dizziness/vertigo; fall(s) in the past year Home Safety:no unsafe pedro hazzards; no unsafe stairs; no unsafe gas appliances; working smoke/CO detectors; use of seatbelts; no vision or hearing loss while driving; no fire arms; has hand bars in the bathroom/shower; good lighting in the home Around Saturday11/06/23, pt walking up from basement to ground level when he fell from the 5th step. Pt thought his Rt leg went out and hence the fall. Pt did bump his head and bumped is left upper flank area & has minor abrasion to his left elbow & numbness in his Rt knee. Pt was seen at Urgent care on [facility] in [place]. No xrays were done. Pt denies any headaches, visual sx, speech problems, memory or confusion problems, focal muscle weakness, unsteady balance or gait, coordination problems, urinary symptoms, or bowel symptoms, worsening /increasing symptoms or any new sx. Patient denies any jaw or neck discomfort, left arm pain/left arm discomfort, chest discomfort/pain, diaphoresis, breathing symptoms/chest tightness, indigestion sx, n/v, any angina equivalent symptoms, etc. Garima Méndez MD [address] [place] [address], [place], [address], [facility] 11/29/2023 12:05:20 01/10/2024 text/html Pt comes in for f/u of left flank pain (gone), LBP (gone), COPD, Knee pain. Pt feels well and has no c/o. Pt has no new sx and no increasing sx. Patient denies any jaw or neck discomfort, left arm pain/left arm discomfort, chest discomfort/pain, diaphoresis, breathing symptoms/chest tightness, indigestion sx, n/v, any angina equivalent symptoms, etc. Garima Méndez MD [address] [facility] [address], [place], [address], [facility] 01/10/2024 14:30:45 06/25/2024 text/html Pt comes in for f/u of Rt knee pain (improved a lot and now only has pain when he crossed his Rt leg). Pt also here for f/u of COPD (no exacerbation), ^PSA, peripheral vascular dz and Tobacco use. Pt feels well and has no c/o. Pt has no new sx and no increasing sx. Patient denies any jaw or neck discomfort, left arm pain/left arm discomfort, chest discomfort/pain, diaphoresis, breathing symptoms/chest tightness, indigestion sx, n/v, any angina equivalent symptoms, etc. Garima Méndez MD [address] [facility] [address], [place], [address], [facility] 06/25/2024 13:39:33
== END 2024-07-08 16:15 | disposition home or self-care (01) ==
PROVIDERS: PCP Internal Medicine; Visit Provider Internal Medicine
DX: E04.2 Nontoxic multinodular goiter (principal)
CPT/HCPCS: 76536

== ENCOUNTER 2025-05-19 14:48 | Outpatient (CLI) | payer MEDICARE, SELFPAY ==
--- NOTE | ~2025-05-19 | CT_ITS ---
EXAMINATION:CT lung screening DATE: 05/19/2025 15:17 INDICATION: Screening TECHNIQUE: Computed tomography (CT) of the chest was performed without intravenous contrast. The dose-length product (DLP) was 83.50 mGy-cm. COMPARISON: December 24, 2023 FINDINGS: No suspicious lung nodules or masses. 2 mm nodules described on the right lung on the previous exam not clearly changed on today's study. Advanced centrilobular emphysematous changes throughout the lungs. The lungs are otherwise clear. Heart and great vessels appear stable including coronary artery calcifications and atherosclerotic calcifications. No acute process seen in the visualized portions of the upper abdomen including partially visualized bilateral renal cysts. Diffuse degenerative changes throughout the bones. IMPRESSION: 1. No suspicious lung nodule or mass mass. Lung RADS 2. Correlate with follow-up low-dose lung cancer screening chest CT in 12 months. 2. Other chronic appearing findings as above. Reviewed, dictated and finalized at location A. RMEDIATE PROJECT MANAGER IMPRESSION: 1. No suspicious lung nodule or mass mass. Lung RADS 2. Correlate with follow-u p low-dose lung cancer screening chest CT in 12 months. 2. Other chronic appearing findings as above.
--- OUTSIDE RECORDS SUMMARY | 2025-05-19 17:41 | XMS_ITS | Continuity of Care Document ---
Author Organization [facility] [employer] Address [address] [place] [address] Assessment Encounter Date Assessment Date Assessment LastModified by Organization Details LastModified Time 04/28/2025 04/28/2025 Patient presente d to office today for [...] risks and promote healthy living. Not available 04/28/2025 10:47:09 Plan of Treatment Reminders Order Date Submit Date Provider Last Modified By Organization Details Last Modified Time Details Appointments ESTABLISH ED PATIENT 15 2025 08:00A Ramone Marrufo MD Not available Not available Not available Lab TSH + free T4, serum 2024 025 [facility] [facility], [address], [place], [address], 05/05/2025 08:11:21 T3, free, serum or plasma 2024 025 [facility] [employer] [facility], [address], [place], [address], 05/05/2025 08:11:21 PSA, serum or plasma 2024 025 [facility] [employer] [facility], [address] [place], [address], 05/05/2025 08:11:21 lipid panel, blood 2024 [facility], [address] [place] [address], [id number], 05/05/2025 08:11:21 CBC w/ auto diff 2024 [facility], [address] [place] [address], [id number], 05/05/2025 08:11:21 CMP, serum or plasma 2024 [facility], [address] [place] [address], [id number], 05/05/2025 08:11:21 hepatitis C virus Ab, serum 2024 [facility], [address] [place] [address], [place], [address], 05/05/2025 08:11:21 Referral vascular surgeon referral 2024 ESTER Squires MD, [address], [place], [address], 04/28/2025 11:10:39 urologist referral 2024 ESTER Naranjo MD, [address], [place], [address], 04/28/2025 11:10:[address] referral 2024 ESTER Anderson MD, [address] , [address], [place], [address], 04/28/2025 11:10:37 gastroent erologist referral 2024 ESTER Marin MD, [address], [address], [place], [address], 04/28/2025 10:55:22 Procedures None recorded. Surgeries None recorded. Imaging LDCT, chest, for lung cancer screening 2024 [facility], [address], [place], [address], 05/05/2025 08:11:28 bone density 2024 [facility], [address], [place], [address], 05/05/2025 08:11:28 Medication Orders Breztri Aerospher e 160 mcg-9mcg- 4.8mcg/ac tuation HFA aerosol inhaler 2024 [facility] #[id number], [address], [place], [address], 04/28/2025 10:50:10 rosuvasta tin 5 mg tablet 2024 [facility] #[id number], [address], [place], [address], 04/28/2025 10:50:10 sildenafi l 100 mg tablet 2024 [facility], [place], [address], 04/28/2025 10:50:14 Patient TargetsNo targets recorded. Patient Instructions Encounter Date Encounter Id Patient Instructions Last Modified By Organization Details Last Modified Time 04/28/2025 [id number] medicare preventive services guide [facility] Not available 04/28/2025 10:50:05 advance care planning: care instructions [facility] Not available 04/28/2025 10:50:05 advised to quit smoking Not available 04/28/2025 10:50:05 Discussed and explained advance directives such as standard forms to the . Face to face discussion lasted for a duration of ___ minutes. Not available 04/28/2025 10:18:35 Reason for Referral Urologist Referral for Prost ate specific antigen outside reference range Referring Physician: Samy Marrufo, Internal Medicine, Encounter Date: 04/28/2025 Neurologist Referral for Int ention tremor Referring Physician: Samy Marrufo, Internal Medicine, Encounter Date: 04/28/2025 Creche Attendant Referral for Screening for malignant neoplasm of colon Referring Physician: Samy Marrufo Internal Medicine, Encounter Date: 04/28/2025 Vascular Surgeon Referral fo r Peripheral vascular disease Referring Physician: Samy Marrufo Internal Medicine, Encounter Date: 04/28/2025 Results Created Date Observation Date Name Description Value Unit Range Abnormal Flag Note LastModifiedBy Organization Detail LastModifiedTime 05/11/20 25 05/11/2025 FREE T3 triiodothyro nine (T3), free 3.02 pg/mL 2.00-4 .40 NOTE: REFER ENCE RANGE S FOR PATIE NTS < 16 YEARS OF AGE HAS NOT BEEN VALID ATED. FOR INFOR MATIO N ONLY. PREGN ANT FEMAL E: 1st Trime ster: 1.6-3 .3 pg/mL 2nd Trime ster: Not Estab lishe d 3rd Trime ster: 1.0-3 .2 pg/mL Not Available [facility] [address], [place], [address], 05/13/2025 14:18:21 Result Notes None recorded. Problems Name Problem SNOMED Code Status Onset Date Resolution Date Notes Provider Name and Address Organization Details Recorded Time Chest pain 93551843 Active 2022 MD Noe Cruz [address], [place], [address] , [facility] 3 19:07:36 Herpes zoster 2966204 Active 2022 MD Noe Cruz [address], [place], [address] , [facility] 3 19:10:24 Serum creatinine above reference range 744653718 Active 2022 MD Noe Cruz [address], [place], [address] , [facility] 3 19:10:24 Hyperglycemia 05106874 Active 2022 MD Noe Cruz [address], [place], [address] , [facility] 3 19:10:24 Goiter 1120032 Active 2022 MD Noe Cruz [address], [place], [place], , [facility] 3 19:10:24 Dyspnea 509509294 Active 2022 MD Noe Cruz [address], [place], [place], , [facility] 3 19:10:24 Impaired glucose tolerance 4125517 Active 2022 MD Noe Cruz [address], [place], [place], , [facility] 3 19:12:51 Thyroid nodule 865717599 Active 2022 MD Noe Cruz [address], [place], [place], , [facility] 3 17:06:49 Nicotine dependence with current use 770569907 Active 2022 MD Noe Cruz [address], [place], [place], , [facility] 3 17:08:17 Atheroscleros is of aorta 89267773 Active 2022 MD Noe Cruz [address], [place], , [facility] 3 17:08:56 Primary erectile dysfunction 646388339 Active 2022 MD Noe Cruz [address], [place], , [facility] 3 17:11:14 Prostate specific antigen outside reference range 713865209 Active 2022 MD Noe Cruz [address], [place], [address] , [facility] 3 07:25:51 Hyperlipidemi a 34064596 Active 2022 MD Noe Cruz [address], [place], [address] , [facility] 3 23:50:13 Chronic obstructive pulmonary disease 37798272 Active 2022 MD Noe Cruz [address], [place], [address] , [facility] 3 12:20:14 Cyst of kidney 310666666 Active 2022 MD Noe Cruz [address], [place], [address] , [facility] 3 22:12:53 Peripheral vascular disease 228083369 Active 2022 MD Noe Cruz [address], [place], [address] , [facility] 3 23:14:13 Problem Notes None recorded. Medical Equipment None Reported. Allergies Allergen ID Allergen Name Allergen Category Reaction Reaction Severity Criticality Documentation Date Start Date Code Code System Note Provider Name and Address Organization Details Recorded Time 69671 codeine medicatio n Not available Not available Not available 11/10/20242024 2670 RxNorm Not Available cash - External Data Service - prod 5 03:24:24 Medications Name Sig Start Date Stop Date [...] Available Not Available sildenafil 100 mg tablet 1 tab a day as needed only 2024 active Not Available Not Available Not Avai lable triamcinolo ne acetonide 0.1 % topical cream [...] Not Available rosuvastati n 5 mg tablet Take 1 tablet every day by oral route in the evening. 2024 active Not Available Not Available Not Avai lable duloxetine 30 mg capsule,del ayed release TAKE 1 CAPSULE BY MOUTH ONCE A DAY FOR 10 DAYS THEN 2 CAPS DAILY THEREAFTE R 01/31 completed -- on 60 mg a day Not Available Not Available Not Available duloxetine 60 mg capsule,del ayed release Take 1 capsule every day by oral route. 01/31 completed Not Available Not Available Not Available Breztri Aerosphere 160 mcg-9mcg-4. 8mcg/actuat ion HFA aerosol inhaler Inhale 2 puffs twice a day by inhalatio n route. 2024 active Not Available Not Available Not Avai lable Vitals Date Recorded Systolic And Diastolic Provider Name and Address Organization Details Last Updated DateTime 04/28/2025 114/65 mm[Hg] Samy Marrufo MD [address], [place], [address], [facility] 04/28/2025 10:38:19 Date Recorded Body height Heart rate Respiratory rate Body temperature Body mass index (BMI) Body weight Provider Name and Address Organization Details Last Updated DateTime 177.8 cm 81 /min 16 /min 97.9 [degF] 22.7 kg/m2 39159.5 9 g Helen Baker [facility] 09:38:50 Social History Question Answer Notes LastModified by [employer] Details LastModified Time Tobacco Smoking Status Former Smoker quit 05/2020 [facility] 10/11/2020 14:20:48 Do You Have An Advance [...] For COVID-19? No Information not available 10/11/2020 What Type Of [...] Is Active? No Information not available 10/11/2020 Hard Of Hearing [...] Date Of Your Most Recent Tobacco Screening? 04/28/2025 mbenfer Information not available 04/28/2025 Mother With HIV? No Informat ion not [...] Smoke? Yes Information no t available 10/11/2020 How Much Tobacco Do You Smoke? 1 PPD Information not available 10/11/2020 General Stress Level Medium Information not available 10/11/2020 How Many Years Have You Smoked Tobacco? 56 Information not available 10/11/2020 Have You Used IV Drugs? No Information not available 10/11/2020 Sex: Male Functional Status Question Answer Note LastModified by Organizat ion Details LastModified Time What is your level of alcohol consumption? Occasional Information not available 10/11/2020 Do you or have you ever used smokeless tobacco? Never used smokeless tobacco Information not available 10/11/2020 Are you currently employed? Yes Information not available 10/11/2020 Are you able to care for yourself independently? Yes Information not available 10/11/2020 Do you or have you ever used e-cigarettes or vape? Never used electronic cigarettes Information not available 10/11/2020 What is your exercise level? None Information not available 10/11/2020 Mental Status None recorded. Family History Nothing Reported. Medical History No medical history recorded. Immunizations Vaccine Type Date Status Note Provider Nam e and Address Organization Details Recorded Time Pneumococcal conjugate PCV 13 1 completed Samy Marrufo MD [address] [place] [address] [address], [place], [address], [facility] 02/20/2021 20:46:54 COVID-19, mRNA, LNP-S, PF, 30 mcg/0.3 mL dose 1 completed MD Noe Cruz [facility] [address], [place], [address], [facility] 02/20/2021 20:46:54 COVID-19, mRNA, LNP-S, PF, 30 mcg/0.3 mL dose 1 completed [facility] [address], [place], [address], [facility] 02/20/2021 20:46:54 Past Encounters Encounter ID Performer Location Encounter Start Date Encounter Closed Date Diagnosis/Indication Diagnosis SNOMED-CT Code Diagnosis ICD10 Code Diagnosis IMO Codes Diagnosis Note [id number] Samy Marrufo MD [address] [place] [address] 04/28/2025 08:59:08 04/28/2025 10:52:08 General examination of patient 519719581 Z00.01 02573147 -- check lab(s) within 7 days from 04/28/25 Atrophy of muscle of right lower leg 5196903029 52035 M62.561 [id number] -- likely due to Peripheral vascular disease Chronic ob structive pulmonary disease 63590087 J44.9 -- spirometry done on 11/10/24 Pain of ri ght knee joint 8929252297 74396 M25.561 -- pt declined PT-- pt reports he is still following w/ Ortho at [place]-- check lab(s) within 7 days from 04/28/25 Prostate s pecific antigen outside reference range 462725185 R97.8 -- pt saw Urologist Dr Kevin Naranjo for elevated PSA 5.6 (Apr 2024) --> 7.0 (07/02/24); pt knows Dr Naranjo ordered MRI of his prostate. On 10/22/24, pt reported that he does not want to have the MRI scan done, and does not want any Tx if he has prostate cancer.-- pt also does not want his /famil y to know about his medical condition or medical decisions. I advised pt to reconsider and share informatio n/decision making w/ his family -- check lab(s) within 7 days from 04/28/25 Thyroid nodule 273706966 E04.1 Rt thyroid nodule-- inform pt that Radiologis t recommends no follow-up imaging needed -- check lab(s) within 7 days from 04/28/25 Atheroscle rosis of aorta 20917110 I70.0 -- need to keep LDL cholestero l 69 or less -- check lab(s) within 7 days from 04/28/25 Peripheral vascular disease 618360171 I73.9 -- 'feet turned cold & purple sometimes' has numbness in feet Hyperlipidemia 19531764 E78.5 Based on the current ASCVD risk calculatio n of 28.6% on 02/10/23, inform pt to: 1. -- advise pt to stop smoking 2. -- start Rosuvastat in 5 mg daily -- check lab(s) within 7 days from 04/28/25 Intention tremor 9484466 6 G25.2 Nicotine d ependence with current use 957544276 F17.210 -- advised to quit smoking because of increased risks for stroke, heart attacks, cancers, COPD (emphysema /chronic bronchitis ), aneurysm and premature .-- repeat chest LDCT 1 year from 12/26/23-- normal US w/o AAA on 12/24/23 Primary er ectile dysfunction 698120406 N52.9 At low risk for fall 439 109550 Z91.81 -- no unsteady balance or gait problems-- last fall was 2022; none since-- no fear of falling or falling tendency Active or passive immunization 219894839 Z23 -- pt does not want Flu shot Screening for malignant neoplasm of colon 374425567 Z12.11 -- Pt reports today 10/11/20 that he will not get the Colonoscop y. -- cologuard tested normal on 10/24/20 --> but abnormal on 08/27/24 Screening for malignant neoplasm of prostate 360517301 Z12.5 -- PSA of 6.0 (02/05/23) --> 7.0 (07/02/24) Screening for osteoporosis 712834832 Z13.820 019362 Normal weight 54537951 Z 68.22 8095489461 -- pt is in the healthy weight category w/ a BMI of 22.7 (ideal is between 20-25)-- pt lost 3 # since his last visit (no symptoms) Hepatitis C screening 41 1729972 Z11.59 19764706 -- tested negative for Hep C on 10/12/20 Health Concerns Section Related Observation LastModified by Organization Detai ls LastModified Time None Recorded Concern Status LastModified by Organization Details LastModified Time None Recorded Payers Encounter Date Sequence Insurance Name Policy Number Policy Humphries Covered Member ID Humphries Member ID Guarantor Name 04/28/2025 1 [employer] (MEDICARE REPLACEMENT/ ADVANTAGE - HMO) [id number] Germán Montano [id number] Germán Montano Notes Date Note Type Note Provider Name and Address Organization Details Recorded Time 5 text/html Medicare Annual Wellness VisitReported by PatientSocial/Behavioral HistoryFor diet and nutrition, patient reportshealthy dietanddiscussed diet improvement. For fracture risk, patient reportsno history of fractures,no recent explained fracture,no sudden unexplained fractures, andno previous musculoskeletal injuries. For physical activity, patient reportsdiscussed weightbearing activitiesanddiscussed exercise habits.Mental Status:For depression risk, patient reportsnever feels sad, empty, or tearful,no loss of interest in activities,no significant changes in weight,no sleep disturbances or insomnia,no agitation,no loss of energy,no feelings of worthlessness or guilt,no thoughts of suicide,no history of depression, andno history of mood disorders. For orientation, patient reportsno disorientation to time,no disorientation to date, andno disorientation to place. For concentration and memory, patient reportsno decreased concentrating ability,no memory lapses or loss, anddoes not forget words. For speech/motor difficulties, patient reportsno speech difficulties,no difficulty expressing formulated concepts,no difficulty with fine manipulative tasks,no difficulty writing/copying,no slowed reaction time, anddoes not knock things over when trying to pick them up.Functional AbilityFor hearing, patient reportsno loss of hearing. For vision, patient reportsno vision problems. For activities of daily living, patient reportsable to bathe with limited or no assistance,able to contol urination and bowels,able to dress with limited or no assistance,able to feed self with limited or no assistance,able to get out of chair or bed with limited or no assistance,able to groom with limited or no assistance, andable to toilet with limited or no assistance. For instrumental activities of daily living, patient reportsable to do house work with limited or no assistance,able to grocery shop with limited or no assistance,able to manage medications with limited or no assistance,able to manage money with limited or no assistance,able to prepare meals with limited or no assistance, andable to use the phone with limited or no assistance. For falls risk assessment, patient reportsno frequent falls while walking,no fall in the past year,no fall since last visit, andno dizziness/vertigo. For home safety, patient reportsno unsafe pedro hazzards,no unsafe stairs,no unsafe gas appliances,working smoke/co detectors,use of seatbelts,no vision or hearing loss while driving,no fire arms,has hand bars in the bathroom/shower, andgood lighting in the home. Pt comes in for f/u of PVD, COPD, ^PSA, Atherosclerosis HLD, and for annual Wellness Visit. Pt feels well and has no c/o. Pt has no new sx and no increasing sx. Patient denies any jaw or neck discomfort, left arm pain/left arm discomfort, chest discomfort/pain, diaphoresis, breathing symptoms/chest tightness, indigestion sx, n/v, any angina equivalent symptoms, etc. Samy Marrufo MD [address] [facility] [address], [place], [address], [facility] 04/28/2025 10:51:00
--- OUTSIDE RECORDS SUMMARY | 2025-05-19 17:42 | XMS_ITS | Encounter Summary ---
Author Organization [facility] Address [facility] [place] [address] Care Team Providers Care Software Client Architect Name Role Phone Samy Marrufo MD Primary Care Provider [phone] Encounter Details Date Type Department Care Team (Late st Contact Info) Description 02/12/2024 Abstract [facility], [facility] [address] [place], [place] [phone] Nkechi Waggoner MA Social History Tobacco Use Types Packs/Day Years Used Date Smoking Tobacco: Never Assessed Sex and Gender Information Value Date Recorded Sex Assigned at Not on file Legal Sex Male 6:14 PM CDT Gender Identity Not on file Sexual Orientation Not on file documented as of this encounter Plan of Treatment Upcoming Encounters Date Type Department Care Team (Late st Contact Info) Description 06/09/2025 2:00 PM LIBRARY MANAGER Office Visit [facility] [facility], [facility] [address] [place], [place] [phone] Hussein Squires MD [facility]. [facility] [address] [place], [place] [phone] documented as of this encounter Procedures Procedure Name Priority Date/Time Associated Diagnosis Comments LIPID PANEL Routine 12/10/2023 documented in this encounter Results * LIPID PANEL (12/10/2023) CHOLESTEROL 123 TRIGLYCERIDES 80 HDL 34 LDL (CALCULATED) 73 us Default History Genericprovider LABORATORY Final Result documented in this encounter Visit Diagnoses Not on filedocumented in this encounter Care Teams Software Client Architect Relationship Specialty Start Date End Date Samy Marrufo MD [address] [facility] [address] [place] [address] PCP - General INTERNAL MEDICINE 10/17/20 documented as of this encounter
--- OUTSIDE RECORDS SUMMARY | 2025-05-19 17:42 | XMS_ITS | Data Portability ---
Author Organization [facility], [employer] Address [address] [address] Assessment Encounter Date Assessment Date Assessment LastModified by Organization Details LastModified Time 11/29/2023 11/29/2023 Patient presente d to office [...] risks and promote healthy living. Not available 11/29/2023 11:49:15 01/10/2024 01/10/2024 Recommends [...] risks and promote healthy living. Not available 01/10/2024 14:26:59 06/25/2024 06/25/2024 Recommends [...] promote healthy living. Not available 06/25/2024 13:24:14 10/22/2024 10/22/2024 Recommends healthy nutrition, including a diet rich in fruits and vegetables, minimizing simple carbohydrates, salt, and saturated fats. Encouraged regular cardiovascular exercise such as walking at least 30 minutes daily, 5 times per week. Emphasized preventive health measures and educated pt on fall prevention and community-based lifestyle interventions to help reduce health risks and promote healthy living. [facility] Not available 10/22/2024 11:58:42 04/28/2025 04/28/2025 Patient presente d to office [...] reduce health risks and promote healthy living. [facility] Not available 04/28/2025 10:47:09 Plan of Treatment Reminders Order Date Submit Date Provider Last Modified By Organization Details Last Modified Time Details Appointments ESTABLISH ED PATIENT 15 2025 08:00A Ramone Marrufo MD Not available Not available Not available Lab TSH + free T4, serum 2024 025 [facility], [address] [place], [address], 05/05/2025 08:11:21 T3, free, serum or plasma 2024 025 [facility], [address] [place], [address], 05/05/2025 08:11:21 PSA, serum or plasma 2024 025 [facility], [address] [place], [address], 05/05/2025 08:11:21 lipid panel, blood 2024 025 [facility], [address] [place], [address], 05/05/2025 08:11:21 CBC w/ auto diff 2024 025 [facility], [address] [place], [address], 05/05/2025 08:11:21 CMP, serum or plasma 2024 025 [facility], [address] [facility], [place], [address], 05/05/2025 08:11:21 hepatitis C virus Ab, serum 2024 025 [facility], [address] [place], [address], 05/05/2025 08:11:21 TSH + free T4, serum 2024 025 [facility], [address] [facility], [place], [address], 10/29/2024 08:22:30 T3, free, serum or plasma 2024 025 [facility], [address] [facility], [place], [address], 10/29/2024 08:22:30 lipid panel, blood 2024 [facility], [address] [facility], [place], [address], 10/22/2024 11:59:07 CBC w/ auto diff 2024 025 [facility], [address] [place], [address], 10/29/2024 08:22:30 CMP, serum or plasma 2024 025 [facility], [address] [place], [address], 10/22/2024 11:59:08 TSH + free T4, serum 2024 025 [facility], [address] [place], [address], 07/02/2024 08:14:49 T3, free, serum or plasma 2024 025 [facility], [address], [place], [address], 07/02/2024 08:14:49 PSA, serum or plasma 2024 025 [facility], [address], [place], [address], 06/25/2024 13:35:59 lipid panel, blood 2024 025 [facility], [address], [place], [address], 06/25/2024 13:35:59 lipid panel, serum 2024 025 [facility], [address], [place], [address], 07/02/2024 08:14:49 CMP, serum or plasma 2024 025 [facility], [address] [facility], [place], [address], 07/03/2024 14:00:59 noninvasi ve colorecta l cancer DNA + occult blood screening , QL, stool 2024 025 [facility], [address], [address], [place], [address], 06/25/2024 13:35:00 urinalysi s complete, reflex culture 2023 024 [facility], [address], [place], [address], 01/10/2024 14:29:32 lipid panel, blood 2023 024 [facility], [address], [place], [address], 01/10/2024 14:29:33 noninvasi ve colorecta l cancer DNA + occult blood screening , QL, stool 2023 024 [facility], [address], [address], [place], [address], 02/07/2024 15:22:30 lipid panel, blood 2023 024 [facility], [address] [facility], [place], [address], 11/29/2023 15:55:17 urinalysi s complete, reflex culture 2023 024 [facility], [address] [facility], [place], [address], 11/29/2023 13:00:45 noninvasi ve colorecta l cancer DNA + occult blood screening , QL, stool 2023 024 [facility], [address], [address], [place], [address], 09/01/2024 14:47:05 Referral vascular surgeon referral 2024 025 ESTER Squires MD, [address] [facility] [address] [facility], [address], [place], [address], 04/28/2025 11:10:39 urologist referral 2024 025 ESTER Naranjo MD, [address] [facility], [address], [place], [address], 04/28/2025 11:10:[address] referral 2024 025 ESTER Anderson MD, [address] [facility], [address], [place], [address], 04/28/2025 11:10:37 gastroent erologist referral 2024 025 ESTER Marin MD, [address], [address], [place], [address], 04/28/2025 10:55:22 urologist referral 2024 025 catrina Naranjo MD, [address] [facility], [address], [place], [address], 10/22/2024 12:20:[address] referral 2024 025 catrina Anderson MD, [address] [facility] , [address], [place], [address], 10/22/2024 12:20:39 gastroent erologist referral 2024 025 catrina Marin MD, [address], [address], [place], [address], 10/22/2024 12:20:39 urologist referral 2024 025 catrina [facility], [address] [facility], [place], [address], 07/23/2024 09:02:25 orthopedi c surgeon referral 2024 025 ESTER [facility] Back [facility] Line), [address], [address], 06/25/2024 18:30:[address] referral 2024 025 ESTER Anderson MD, [address] [facility] , [address], [place], [address], 07/06/2024 11:25:22 cardiolog ist referral 2023 024 catrina [facility], [address] [place], [address], 01/04/2025 08:16:09 urologist referral 2023 024 [facility], [address], [place], [address], 02/07/2024 08:23:[address] referral 2023 024 [facility], [address], [place], [address], 01/04/2025 08:16:10 urologist referral 2023 024 [facility], [address], [place], [address], 12/27/2023 08:15:20 cardiolog ist referral 2023 024 [email or web address] Jose Lugo MD, [address] [facility] , [facility] [address], [place], [address], 11/29/2023 12:16:[address] referral 2023 024 catrina Anderson MD, [address] [facility] , [facility] [address], [place], [address], 11/23/2024 08:42:44 physical therapist referral 2023 024 [facility], OT, Speech Therapy, [address] [facility] [place], [address], 11/23/2024 08:42:45 Procedures None recorded. Surgeries None recorded. Imaging LDCT, chest, for lung cancer screening 2024 025 [facility], [address], [place], [address], 05/05/2025 08:11:28 bone density 2024 025 [facility], [address], [place], [address], 05/05/2025 08:11:28 US, thyroid - Radiologi st recommend s repeating thyroid Ultrasoun d 1 year from 12/26/23[address], [facility] [address], [address], 11/05/2024 08:25:58 LDCT, chest, for lung cancer screening 2024 025 [facility], [facility] [address], [address], 10/29/2024 08:22:35 US, thyroid - Radiologi st recommend s repeating thyroid Ultrasoun d 1 year from 12/26/232024 025 [facility], [address] [facility] [address] [facility], [place], [address], 07/09/2024 08:12:24 US, thyroid 2023 025 [facility], [facility] [address], [address], 11/16/2024 08:18:59 XR, knee, 3 view [address], [facility] [address], [address], 01/17/2024 09:05:11 US, doppler, arterial 2023 024 [facility], [address] [place] [address], [place], [address], 12/17/2023 08:03:38 US, thyroid 2023 024 [facility] Patient Access Centralized Scheduling, Centralized Scheduling, [address] [facility] , [place], [address], 12/13/2023 08:51:02 XR, knee, 3 view 2023 024 [facility] Patient Access Centralized Scheduling, Centralized Scheduling, [address] [facility] [place], [address], 12/06/2023 08:20:41 XR, lumbar spine 2023 024 [email or web address] [place] [facility] Patient Access Centralized Scheduling, Centralized Scheduling, [address] [facility] [place], [address], 12/06/2023 08:20:41 XR, ribs, unilatera l, w/ PA chest 2023 024 catrina [facility], [address] [facility], [place], [address], 12/06/2023 08:20:41 US, screening for abdominal aortic aneurysm 2023 024 [facility] Patient Access Centralized Scheduling, Centralized Scheduling, [facility] [place], [address], 12/06/2023 08:20:40 LDCT, chest, for lung cancer screening - -- LDCT to be done around 04/03/242023 024 [facility] Patient Access Centralized Scheduling, Centralized Scheduling, [address] [facility] [place], [address], 12/06/2023 08:20:40 MRI, brain, w/wo contrast 2023 024 [facility] Patient Access Centralized Scheduling, Centralized Scheduling, [facility] [place], [address], 12/06/2023 08:20:40 Medication Orders Breztri Aerospher e 160 mcg-9mcg- 4.8mcg/ac tuation HFA aerosol inhaler 2024 025 [facility] #[id number], [address] [place], [address], 04/28/2025 10:50:10 rosuvasta tin 5 mg tablet 2024 025 [id number], [address], [place], [address], 04/28/2025 10:50:10 sildenafi l 100 mg tablet 2024 025 [facility], [place], [address], 04/28/2025 10:50:14 Breztri Aerospher e 160 mcg-9mcg- 4.8mcg/ac tuation HFA aerosol inhaler 2024 025 [id number], [address] [place], [address], 10/22/2024 11:59:05 rosuvasta tin 5 mg tablet 2024 025 [id number], [address] [place], [address], 10/22/2024 11:59:03 sildenafi l 100 mg tablet 2024 025 [facility], [address], [place], [address], 10/22/2024 11:59:07 Breztri Aerospher e 160 mcg-9mcg- 4.8mcg/ac tuation HFA aerosol inhaler 2024 025 [id number], [address] [place], [address], 06/25/2024 13:35:10 rosuvasta tin 5 mg tablet 2024 025 [id number], [address] [place], [address], 06/25/2024 13:35:09 sildenafi l 100 mg tablet 2024 025 [facility], [address], [place], [address], 06/25/2024 13:35:11 Breztri Aerospher e 160 mcg-9mcg- 4.8mcg/ac tuation HFA aerosol inhaler 2023 024 [facility] #[id number], [address], [place], [address], 01/10/2024 14:28:36 sildenafi l 100 mg tablet 2023 024 [facility] [address], [address], [place], [address], 01/10/2024 14:28:42 sildenafi l 100 mg tablet 2023 024 [facility], [address], [place], [address], 11/29/2023 12:04:01 Patient TargetsNo targets recorded. Patient Instructions Encounter Date Encounter Id Patient Instructions Last Modified By Organization Details Last Modified Time 11/29/2023 [id number] medicare preventive services guide [facility] Not available 11/29/2023 12:03:49 advance care planning: care instructions [facility] Not available 11/29/2023 12:03:49 advised to quit smoking [facility] Not available 11/29/2023 12:03:49 Discussed and explained advance directives such as standard forms to the . Face to face discussion lasted for a duration of ___ minutes. Not available 11/29/2023 11:39:36 01/10/2024 [id number] advised to quit smoking Not available 01/10/2024 14:28:32 06/25/2024 [id number] advised to quit smoking Not available 06/25/2024 13:34:59 10/22/2024 [id number] spirometry testing* [facility] Not available 11/10/2024 10:08:02 advised to quit smoking Not available 10/22/2024 11:58:56 04/28/2025 [id number] medicare preventive services guide Not available 04/28/2025 10:50:05 advance care planning: care instructions Not available 04/28/2025 10:50:05 advised to quit smoking Not available 04/28/2025 10:50:05 Discussed and explained advance directives such as standard forms to the . Face to face discussion lasted for a duration of ___ minutes. Not available 04/28/2025 10:18:35 Reason for Referral Calculator Operator Referral for Ch est pain Referring Physician: Sariah Cruz, Encounter Date: 11/29/2023 Urologist Referral for Prost ate specific antigen outside reference range Referring Physician: Sariah Cruz, Encounter Date: 11/29/2023 Neurologist Referral for Uns teady when walking Referring Physician: Sariah Cruz, Encounter Date: 11/29/2023 Physical Therapist Referral for Unsteady when walking Referring Physician: Sariah Cruz, Encounter Date: 11/29/2023 Calculator Operator Referral for Ch est pain Referring Physician: Sariah Cruz, Encounter Date: 01/10/2024 Urologist Referral for Prost ate specific antigen outside reference range Referring Physician: Sariah Cruz, Encounter Date: 01/10/2024 Neurologist Referral for Uns teady when walking Referring Physician: Sariah Cruz, Encounter Date: 01/10/2024 Urologist Referral for Prost ate specific antigen outside reference range Referring Physician: Sariah Cruz, Encounter Date: 06/25/2024 Orthopedic Surgeon Referral for Pain of right knee joint Referring Physician: Sariah Cruz, Encounter Date: 06/25/2024 Neurologist Referral for Int ention tremor Referring Physician: Sariah Cruz, Encounter Date: 06/25/2024 Urologist Referral for Prost ate specific antigen outside reference range Referring Physician: Samy [facility]fo [facility], Encounter Date: 10/22/2024 Neurologist Referral for Int ention tremor Referring Physician: Samy Marrufo [facility], Encounter Date: 10/22/2024 Director Systems Referral for Screening for malignant neoplasm of colon Referring Physician: Samy Marrufo [facility], Encounter Date: 10/22/2024 Urologist Referral for Prost ate specific antigen outside reference range Referring Physician: Samy Marrufo [facility], Encounter Date: 04/28/2025 Neurologist Referral for Int ention tremor Referring Physician: Samy Marrufo [facility], Encounter Date: 04/28/2025 Director Systems Referral for Screening for malignant neoplasm of colon Referring Physician: Samy Marrufo [facility], Encounter Date: 04/28/2025 Vascular Surgeon Referral fo r Peripheral vascular disease Referring Physician: Samy Marrufo [facility], Encounter Date: 04/28/2025 Results Created Date Observation Date Name Description Value Unit Range Abnormal Flag Note LastModifiedBy Organization Detail LastModifiedTime 12/10/1912/10/2023 LIPID PANEL W/ CALC. LDL cholesterol, total 123 mg/dL 100-19 9 Not Available [facility] [address] [facility] [address], [place], [address], 12/12/2023 12:31:16 12/10/1912/10/2023 LIPID PANEL W/ CALC. LDL HDL cholesterol 34 mg/dL =>40 Not Available [facility] [address] [facility] [address], [place], [address], 12/12/2023 12:31:16 12/10/19 24 12/10/2023 LIPID PANEL W/ CALC. LDL LDL cholesterol (calculated) 73 mg/dL 0-99 Not Available [facility] [address] [facility] [address], [place], [address], 12/12/2023 12:31:16 12/10/19 24 12/10/2023 LIPID PANEL W/ CALC. LDL triglyceride s 80 mg/dL 50-149 Not Available [facility] [address] [facility] [address], [place], [address], 12/12/2023 12:31:16 12/10/19 24 12/10/2023 LIPID PANEL W/ CALC. LDL chol/HDL ratio (calculated) 3.62 ratio 0.00-5 .00 Not Available [facility] [address] [facility] [address], [place], [address], 12/12/2023 12:31:16 12/10/19 24 12/10/2023 LIPID PANEL W/ CALC. LDL VLDL cholesterol (calculated) 16 mg/dL 5-40 Not Available [facility] [address] [facility] [address], [place], [address], 12/12/2023 12:31:16 07/02/19 25 07/02/2024 COMPR EHENS CINDY METAB OLIC PANEL sodium 144 mmol/ L 134-14 4 Not Available [facility] [address] [facility] [address], [place], [address], 07/03/2024 14:00:59 07/02/19 25 07/02/2024 COMPR EHENS CINDY METAB OLIC PANEL potassium 4.5 mmol/ L 3.5-5. 2 Not Available [facility] [address] [facility] [address], [place], [address], 07/03/2024 14:00:59 07/02/19 25 07/02/2024 COMPR EHENS CINDY METAB OLIC PANEL chloride 106 mmol/ L 98-107 Not Available [facility] [address] [facility] [address], [place], [address], 07/03/2024 14:00:59 07/02/19 25 07/02/2024 COMPR EHENS CINDY METAB OLIC PANEL carbon dioxide (co2) 26.0 mmol/ L 18.0-2 9.0 Not Available [facility] [address] [facility] [address], [place], [address], 07/03/2024 14:00:59 07/02/19 25 07/02/2024 COMPR EHENS CINDY METAB OLIC PANEL glucose 94 mg/dL 65-99 Kenzie l Fasti n - 99 mg/dL Impai red Fasti n - 125 mg/dL Diagn ostic of Diabe eduardo: => 126 mg/dL Ameri can [facility], 2007 Not Available [facility] [address] [facility] [address], [place], [address], 07/03/2024 14:00:59 07/02/19 25 07/02/2024 COMPR EHENS CINDY METAB OLIC PANEL urea nitrogen (BUN) 17 mg/dL 8-23 Not Available [facility] [address] [facility] [address], [place], [address], 07/03/2024 14:00:59 07/02/19 25 07/02/2024 COMPR EHENS CINDY METAB OLIC PANEL creatinine 1.57 mg/dL 0.76-1 .27 high Not Available [facility] [address] [facility] [address], [place], [address], 07/03/2024 14:00:59 07/02/1907/02/2024 COMPR EHENS CINDY METAB OLIC PANEL eGFR 46 mL/mi nute/ 1.73_ m2 >59 low MDRD Study Equat ion: The calcu lated GFR is NOT appli cable for pedia tric (< 18 years old) and > 70 year old patie nts and patie nts that are NOT of stead y state . Not Available [facility] [address] [facility] [address], [place], [address], 07/03/2024 14:00:59 07/02/19 25 07/02/2024 COMPR EHENS CINDY METAB OLIC PANEL calcium 9.1 mg/dL 8.6-10 .2 Not Available [facility] [address] [facility] [address], [place], [address], 07/03/2024 14:00:59 07/02/19 25 07/02/2024 COMPR EHENS CINDY METAB OLIC PANEL protein, total 6.4 gm/dL 6.4-8. 3 Not Available [facility] [address] [facility] [address], [place], [address], 07/03/2024 14:00:59 07/02/19 25 07/02/2024 COMPR EHENS CINDY METAB OLIC PANEL albumin 4.1 gm/dL 3.5-5. 2 Not Available [facility] [address] [facility] [address], [place], [address], 07/03/2024 14:00:59 07/02/19 25 07/02/2024 COMPR EHENS CINDY METAB OLIC PANEL bilirubin, total 0.50 mg/dL 0.00-1 .20 Not Available [facility] [address] [facility] [address], [place], [address], 07/03/2024 14:00:59 07/02/19 25 07/02/2024 COMPR EHENS CINDY METAB OLIC PANEL alkaline phosphatase (ALP) 109 U/L 39-117 Not Available [facility] [address] [facility] [address], [place], [address], 07/03/2024 14:00:59 07/02/19 25 07/02/2024 COMPR EHENS CINDY METAB OLIC PANEL aspartate aminotransfe rase (AST) 10 U/L 0-40 Not Available [facility] [address] [facility] [address], [place], [address], 07/03/2024 14:00:59 07/02/19 25 07/02/2024 COMPR EHENS CINDY METAB OLIC PANEL alanine aminotransfe rase (ALT) 6 U/L 0-41 Not Available [facility] [address] [facility] [address], [place], [address], 07/03/2024 14:00:59 07/02/19 25 07/02/2024 COMPR EHENS CINDY METAB OLIC PANEL A/G ratio (calculated) 1.8 ratio 1.0-2. 7 Not Available [facility] [address] [facility] [address], [place], [address], 07/03/2024 14:00:59 07/02/19 25 07/02/2024 COMPR EHENS CINDY METAB OLIC PANEL globulin (calculated) 2.3 gm/dL 1.5-3. 8 Not Available [facility] [address] [facility] [address], [place], [address], 07/03/2024 14:00:59 07/02/19 25 07/02/2024 COMPR EHENS CINDY METAB OLIC PANEL BUN/creatini ne ratio (calculated) 10.8 ratio 8.0-20 .0 Not Available [facility] [address] [facility] [address], [place], [address], 07/03/2024 14:00:59 07/02/19 25 07/02/2024 COMPR EHENS CINDY METAB OLIC PANEL serum hemolysis index NORMAL index normal Not Available [facility] [address] [facility] [address], [place], [address], 07/03/2024 14:00:59 07/02/19 25 07/02/2024 FREE T3 triiodothyro nine (T3), free 2.98 pg/mL 2.00-4 .40 NOTE: REFER ENCE RANGE S FOR PATIE NTS < 16 YEARS OF AGE HAS NOT BEEN VALID ATED. FOR INFOR MATIO N ONLY. PREGN ANT FEMAL E: 1st Trime ster: 1.6-3 .3 pg/mL 2nd Trime ster: Not Estab lishe d 3rd Trime ster: 1.0-3 .2 pg/mL Not Available [facility] [address] [facility] [address], [place], [address], 07/03/2024 14:01:00 07/02/19 25 07/02/2024 FREE T4 thyroxine (T4), free 1.07 NG/dL 0.82-1 .77 Not Available [facility] [address] [facility] [address], [place], [address], 07/03/2024 14:01:01 07/02/19 25 07/02/2024 LIPID PANEL W/ CALC. LDL cholesterol, total 124 mg/dL 100-19 9 Not Available [facility] [address] [facility] [address], [place], [address], 07/03/2024 14:01:02 07/02/19 25 07/02/2024 LIPID PANEL W/ CALC. LDL HDL cholesterol 34 mg/dL =>40 Not Available [facility] [address] [facility] [address], [place], [address], 07/03/2024 14:01:02 07/02/19 25 07/02/2024 LIPID PANEL W/ CALC. LDL LDL cholesterol (calculated) 77 mg/dL 0-99 Not Available [facility] [address] [facility] [address], [place], [address], 07/03/2024 14:01:02 07/02/19 25 07/02/2024 LIPID PANEL W/ CALC. LDL triglyceride s 64 mg/dL 50-149 Not Available [facility] [address] [facility] [address], [place], [address], 07/03/2024 14:01:02 07/02/19 25 07/02/2024 LIPID PANEL W/ CALC. LDL chol/HDL ratio (calculated) 3.65 ratio 0.00-5 .00 Not Available [facility] Laboratory [address] [facility] [address], [place], [address], 07/03/2024 14:01:02 01/30/07/02/2024 LIPID PANEL W/ CALC. LDL VLDL cholesterol (calculated) 13 mg/dL 5-40 Not Available [facility] [address] [facility] [address], [place], [address], 07/03/2024 14:01:02 07/02/19 25 07/02/2024 PROST ATE-S PECIF IC ANTIG EN (PSA) , TOTAL (DIAG NOSTI C) prostate-spe cific antigen, total 7.0 NG/mL 0.0-4. 0 high Tania ECLIA METHO DOLOG Y. RESUL TS FROM THIS METHO D IS NOT SHAHID TIBLE WITH DIFFE RENT ASSAY METHO D AND CANNO T BE USED INTER FRANKS EABLY . Not Available [facility] [address] [facility] [address], [place], [address], 07/03/2024 14:01:02 07/02/19 25 07/02/2024 THYRO ID-ST IM. HORMO NE (TSH) thyroid-stim . hormone (TSH) 0.31 uIU/m L 0.27-4 .20 Not Available [facility] [address] [facility] [address], [place], [address], 07/03/2024 14:01:03 08/28/19 25 08/27/2024 COLOG UARD cologuard result reportable POSITI VE negati ve abnormal POSIT CINDY TEST RESUL T. A posit cindy Colog uard resul t shoul d be follo wed with a colon oscop y or visua l exami natio n of the colon . The kenzie l value (refe rence range ) for this assay is negat cindy. TEST DESCR IPTIO N: Pettit site algor ithmi c renée sis of stool DNA-b torri villalobos with hemog lobin immun oassa y. Quant itati ve value s of indiv idual bioma rkers are not repor table and are not assoc iated with indiv idual bioma rker resul t refer ence range s. Colog uard is inten ded for color ectal cance r scree kelsey of adult s of eithe r sex, 45 years or older , who are at [facility] for color ectal cance r (CRC) . Colog uard has been appro betzy for use by the U.S. FDA. The perfo rmanc e of Colog uard was estab lishe d in a cross secti onal study of [facility] adult s aged 50-84 . Colog uard perfo rmanc e in patie nts ages 45 to 49 years was estim ated by kamila-g msityp renée sis of near- age group s. Colon oscop ies perfo rmed for a posit cindy resul t may find as the most clini bryant signi fican t lesio n: color ectal cance r [4.0% ], advan jennifer adeno ma (incl uding sessi le francine umu polyp s great er than or equal to 1cm diame ter) [20%] or non- advan jennifer adeno ma [31%] ; or no color ectal neopl antwan [45%] . These estim ates are deriv ed from a prosp ectiv e cross -sect ional scree kelsey study of 0 indiv idual s at [facility] risk for color ectal cance r who were scree paramjit with both Colog uard and colon oscop y. (Alexis Gallardo et al, N Engl J Med 2014; 370(1 4):12 86-12 97.) Colog uard may produ ce a false negat cindy or false posit icndy resul t (no color ectal cance r or preca ncero us polyp prese nt at colon oscop y follo w up). A negat cindy Colog uard test resul t does not guara ntee the absen ce of CRC or advan jennifer adeno ma (pre- cance r). The curre nt Colog uard scree kelsey inter rodolfo is every 3 years . (Amer ican Cance r Socie ty and U.S. Multi -Soci ety Task Force ). Colog uard perfo rmanc e data in a 0 patie nt pivot al study using colon oscop y as the refer ence metho d can be acces sed at the follo wing locat ion: www.e xactl abs.c om/re sults . Addit ional descr iptio n of the Colog uard test proce ss, warni ngs and preca ution s can be found at www.c cierra viera.c om. Not Available [facility] [address], [place], [address], 09/01/2024 14:47:05 11/11/19 25 11/10/2024 jose angel metry testi ng* Spirometry Not Available [facility] [address], [place], [address], 10/22/2024 11:55:55 05/11/20 25 05/11/2025 FREE T3 triiodothyro nine (T3), free 3.02 pg/mL 2.00-4 .40 NOTE: REFER ENCE RANGE S FOR PATIE NTS < 16 YEARS OF AGE HAS NOT BEEN VALID ATED. FOR INFOR MATIO N ONLY. PREGN ANT FEMAL E: 1st Trime ster: 1.6-3 .3 pg/mL 2nd Trime ster: Not Estab lishe d 3rd Trime ster: 1.0-3 .2 pg/mL Not Available [facility] [address], [place], [address], 05/13/2025 14:18:21 05/11/20 25 05/11/2025 HEPAT ITIS C ANTIB DIGNA (HCV) WITH REFLE X TO QUANT ITATI VE, RT-PC R (NON- GRAPH ICAL) HCV Ab, qualitative Non-Re active non-re active Not Available [facility] [address] [facility] [address], [place], [address], 05/13/2025 14:18:22 05/11/20 25 05/11/2025 LIPID PANEL (CHOL CONNER OL TOTAL , TRIGL YCERI DARLIN, HDL LEXIS STERO L, LDL CHOL. cholesterol, total 126 mg/dL 100-19 9 Not Available [facility] [address] [facility] [address], [place], [address], 05/13/2025 14:18:22 05/11/20 25 05/11/2025 LIPID PANEL (CHOL CONNER OL TOTAL , TRIGL YCERI DARLIN, HDL LEXIS STERO L, LDL CHOL. HDL cholesterol 32 mg/dL =>40 Not Available [facility] [address] [facility] [address], [place], [address], 05/13/2025 14:18:22 05/11/20 25 05/11/2025 LIPID PANEL (CHOL CONNER OL TOTAL , TRIGL YCERI DARLIN, HDL LEXIS STERO L, LDL CHOL. LDL cholesterol (calculated) 76 mg/dL 0-99 Not Available [facility] [address] [facility] [address], [place], [address], 05/13/2025 14:18:22 05/11/20 25 05/11/2025 LIPID PANEL (CHOL CONNER OL TOTAL , TRIGL YCERI DARLIN, HDL LEXIS STERO L, LDL CHOL. triglyceride s 92 mg/dL 50-149 Not Available [facility] [address] [facility] [address], [place], [address], 05/13/2025 14:18:22 05/11/20 25 05/11/2025 LIPID PANEL (CHOL CONNER OL TOTAL , TRIGL YCERI DARLIN, HDL LEXIS STERO L, LDL CHOL. chol/HDL ratio (calculated) 3.94 ratio 0.00-5 .00 Not Available [facility] [address] [facility] [address], [place], [address], 05/13/2025 14:18:22 05/11/20 25 05/11/2025 LIPID PANEL (CHOL CONNER OL TOTAL , TRIGL YCERI DARLIN, HDL LEXIS STERO L, LDL CHOL. VLDL cholesterol (calculated) 18 mg/dL 5-40 Not Available [facility] [address] [facility] [address], [place], [address], 05/13/2025 14:18:22 05/11/20 25 05/11/2025 PROST ATE-S PECIF IC ANTIG EN (PSA) , TOTAL (DIAG NOSTI C) prostate-spe cific antigen, total 7.6 NG/mL 0.0-4. 0 high Tania ECLIA METHO DOLOG YRacheal MUNOZ TS FROM THIS METHO D IS NOT SHAHID TIBLE WITH DIFFE RENT ASSAY METHO D AND CANNO T BE USED INTER FRANKS EABLY . Not Available [facility] [address] [facility] [address], [place], [address], 05/13/2025 14:18:23 05/11/20 25 05/11/2025 TSH, REFLE X TO FT4 TSH, reflex to FT4 0.39 uIU/m L 0.27-4 .20 Not Available [facility] [address] [facility] [address], [place], [address], 05/13/2025 14:18:23 12/10/19 24 12/10/2023 XR, knee, 3 view No observ ation record ed. [address] [place], [address], 01/10/2024 14:30:30 12/22/19 24 XR, lumba r spine No observ ation record ed. [address] Central [address] [place], [address], 01/10/2024 14:30:30 12/22/19 24 XR, ribs, unila teral , w/ PA chest No observ ation record ed. [address] [place], [address], 01/10/2024 14:30:30 12/24/19 24 12/24/2023 US, scree kelsey for abdom inal aorti c aneur ysm No observ ation record ed. [address] Patient Access Centralized Scheduling Centralized Scheduling [address] [facility] [place], [address], 01/10/2024 14:30:29 12/26/19 24 12/24/2023 US, thyro id No observ ation record ed. [address], [place], [address], 01/10/2024 14:30:29 12/26/19 24 LDCT, chest , for lung cance r scree kelsey No observ ation record ed. [address] Patient Access Centralized Scheduling Centralized Scheduling [address] [facility] , [place], [address], 01/10/2024 14:30:29 01/30/20 24 01/30/2024 US, doppl er, arter ial No observ ation record ed. [address], [place], [address], 06/25/2024 13:37:11 07/08/19 25 07/08/2024 US, thyro id No observ ation record ed. [address], [place], [address], 10/22/2024 12:01:55 11/11/19 25 11/10/2024 jose angel metry testi ng* No observ ation record ed. [facility], [place] [address] [facility] [address], [place], [address], 11/10/2024 14:19:14 Result Notes None recorded. Problems Name Problem SNOMED Code Status Onset Date Resolution Date Notes Provider Name and Address Organization Details Recorded Time Chest pain 87535869 Active 2022 MD Noe Cruz [facility] [address], [place], , [facility] 19:07:36 Herpes zoster 9725727 Active 2022 MD Noe Cruz [facility] [address], [place], [address] , [facility] 3 19:10:24 Serum creatinine above reference range 485408462 Active 2022 MD Noe Cruz [address], [place], [address] , [facility] 3 19:10:24 Hyperglycemia 88550993 Active 2022 MD Noe Cruz [address], [place], [address] , [facility] 3 19:10:24 Goiter 3250640 Active 2022 MD Noe Cruz [address], [place], [address] , [facility] 3 19:10:24 Dyspnea 105816969 Active 2022 MD Noe Cruz [address], [place], [address] , [facility] 3 19:10:24 Impaired glucose tolerance 9032072 Active 2022 MD Noe Cruz [address], [place], [address] , [facility] 3 19:12:51 Thyroid nodule 807626100 Active 2022 MD Noe Cruz [address], [place], [address] , [facility] 3 17:06:49 Nicotine dependence with current use 102844664 Active 2022 MD Noe Cruz [address], [place], [place], , [facility] 3 17:08:17 Atheroscleros is of aorta 63066853 Active 2022 MD Noe Cruz [address], [place], [address] , [facility] 3 17:08:56 Primary erectile dysfunction 071355873 Active 2022 MD Noe Cruz [address], [place], [address] , [facility] 3 17:11:14 Prostate specific antigen outside reference range 376006397 Active 2022 MD Noe Cruz [address], [place], [address] , [facility] 3 07:25:51 Hyperlipidemi a 93433577 Active 2022 MD Noe Cruz [address], [place], [address] , [facility] 3 23:50:13 Chronic obstructive pulmonary disease 52638232 Active 2022 MD Noe Cruz [address], [place], [address] , [facility] 3 12:20:14 Cyst of kidney 539805769 Active 2022 MD Noe Cruz [address], [place], [address] , [facility] 3 22:12:53 Peripheral vascular disease 302636450 Active 2022 MD Noe Cruz [address], [place], [address] , [facility] 3 23:14:13 Problem Notes None recorded. Medical Equipment None Reported. Allergies Allergen ID Allergen Name Allergen Category Reaction Reaction Severity Criticality Documentation Date Start Date Code Code System Note Provider Name and Address Organization Details Recorded Time 79297 codeine medicatio n Not available Not available Not available 11/10/20242024 2670 RxNorm Not Available [facility] - External Data Service - prod 5 [...] 2024 active Not Available Not Available Not Carmen partida triamcinolo ne acetonide 0.1 % topical cream [...] 2024 active Not Available Not Available Not Carmen partida duloxetine 30 mg capsule,del ayed release TAKE 1 CAPSULE BY MOUTH ONCE A DAY FOR 10 DAYS THEN 2 CAPS DAILY THEREAFTE R 01/31 completed -- on 60 mg a day Not Available Not Available Not Available duloxetine 60 mg capsule,del ayed release Take 1 capsule every day by oral route. 01/31 completed Not Available Not Available Not Available [employer] 160 mcg-9mcg-4. 8mcg/actuat ion HFA aerosol inhaler Inhale 2 puffs twice a day by inhalatio n route. 2024 active Not Available Not Available Not Carmen partida Vitals Date Recorded Body height Heart rate Respiratory rate Body temperature Body mass index (BMI) Body weight Systolic And Diastolic Provider Name and Address Organization Details Last Updated DateTime 5 177.8 cm 61 /min 16 /min 97.4 [degF] 23.4 kg/m2 07344.5 6 g 166/70 mm[Hg] Helen Baker [facility] 5 12:39:48 Date Recorded Body height Heart rate Respiratory rate Body temperature Body mass index (BMI) Body weight Systolic And Diastolic Provider Name and Address Organization Details Last Updated DateTime 5 177.8 cm 73 /min 16 /min 97.6 [degF] 23.1 kg/m2 72721.3 7 g 160/71 mm[Hg] Helen Baker [facility] 5 11:10:45 Date Recorded Body height Body mass index (BMI) Body weight Respiratory rate Body temperature Heart rate Systolic And Diastolic Provider Name and Address Organization Details Last Updated DateTime 4 177.8 cm 23.4 kg/m2 04643.5 6 g 16 /min 98 [degF] 71 /min 113/67 mm[Hg] Fatimah Marrufo [facility] 4 11:03:04 Date Recorded Body height Heart rate Respiratory rate Body temperature Body mass index (BMI) Body weight Systolic And Diastolic Provider Name and Address Organization Details Last Updated DateTime 4 177.8 cm 65 /min 16 /min 97.6 [degF] 22.8 kg/m2 98568.1 9 g 162/61 mm[Hg] Helen Baker [facility] 4 13:43:41 Date Recorded Systolic And Diastolic Provider Name and Address Organization Details Last Updated DateTime 04/28/2025 114/65 mm[Hg] Samy Marrufo MD [address], [place], [address], [facility] 04/28/2025 10:38:19 Date Recorded Body height Heart rate Respiratory rate Body temperature Body mass index (BMI) Body weight Provider Name and Address Organization Details Last Updated DateTime 5 177.8 cm 81 /min 16 /min 97.9 [degF] 22.7 kg/m2 27103.5 9 g Helen Baker [facility] 5 09:38:50 Social History Question Answer Notes LastModified by Organizat ion Details LastModified Time Tobacco Smoking Status Former [facility] 14:20:48 Do You Have An [...] Details Recorded Time Pneumococcal conjugate PCV 13 completed Samy Marrufo MD [address], [place], [address], [facility] 02/20/2021 20:46:54 COVID-19, mRNA, LNP-S, PF, 30 mcg/0.3 mL dose 1 completed MD Noe Cruz [address], [place], [address], [facility] 02/20/2021 20:46:54 COVID-19, mRNA, LNP-S, PF, 30 mcg/0.3 mL dose 1 completed MD Noe Cruz [address], [place], [address], [facility] 02/20/2021 20:46:54 Past Encounters Encounter ID Performer Location Encounter Start Date Encounter Closed Date Diagnosis/Indication Diagnosis SNOMED-CT Code Diagnosis ICD10 Code Diagnosis IMO Codes Diagnosis Note [id number] Samy Marrufo MD [facility], [address] [place] [address] 10/11/2020 13:32:14 10/11/2020 15:36:50 Dyspnea 191739979 R06.00 Fatigue 75171592 R53.83 Hepatitis C screening 41 0123038 Z11.59 Body mass index 25-29 - overweight 660362034 Z68.29 -- will advise weight loss -- pt's BMI today is 29.4 (ideal is between 20-25) Active or passive immunization 313937386 Z23 Screening for malignant neoplasm of colon 817020910 Z12.11 -- Pt reports today 10/11/20 that he will not get the Colonoscop y. Screening for malignant neoplasm of prostate 097606809 Z12.5 Hyperlipid emia screening 426838482 Z13.220 Ex-smoker 2248953 Z87.89 1 (Quit May 2020) -- will CTA of chest if D-dimer is abnormal since pt has SUI [id number] Samy Marrufo MD [facility], [address] [place] [address] 11/01/2020 15:28:41 11/01/2020 18:11:04 Adult health examination 148138906 Z00.00 Dyspnea 321019662 R06.00 -- spirometry and EKG done on 10/11/20 Body mass index 25-29 - overweight 900260345 Z68.29 -- will advise weight loss; pt lost 2 # since his last visit -- pt's BMI today is 29.1 (ideal is between 20-25) Ex-smoker 1941398 Z87.89 1 (Quit May 2020) -- no lung nodules on Chest CTA on 10/17/20 -- no AAA on u/s done on 10/14/20 Hyperlipid emia screening 631705904 Z13.220 -- good lipid panel on 10/12/20 Hepatitis C screening 41 5011208 Z11.59 -- tested negative for Hep C on 10/12/20 Active or passive immunization 984624323 Z23 Screening for malignant neoplasm of colon 919357149 Z12.11 -- Pt reports today 10/11/20 that he will not get the Colonoscop y. -- cologuard tested normal on 10/24/20 Prostate s pecific antigen outside reference range 518123271 R97.8 -- will refer pt to Urologist for eval of elevated PSA of 5.6 Hyperglycemia 14531740 R 73.9 -- recheck lab(s) around 03/02/21 Serum crea tinine above reference range 810586540 R79.89 -- need to avoid any otc pain meds: like Ibuprofen /motrin /advil /Aleve /Naproxen /etc. Inform patient to increase and maintain fluids to over 64 fluid ounces daily. -- recheck lab(s) around 03/02/21 Goiter 9594828 E04.9 (evident on thyroid u/s done on 10/26/20) -- recheck lab(s) around 03/02/21 [id number] Samy Marrufo MD [facility], [employer] [address] [facility] [address] [place] [address] 01/09/2021 17:43:27 01/09/2021 19:57:57 Herpes zoster 2770292 B02.9 (left chest and left back) -- see photo Serum crea tinine above reference range 556523892 R79.89 -- need to avoid any otc pain meds: like Ibuprofen /motrin /advil /Aleve /Naproxen /etc. Inform patient to increase and maintain fluids to over 64 fluid ounces daily. -- recheck lab(s) around 03/02/21 Hyperglycemia 68963162 R 73.9 -- recheck lab(s) around 03/02/21 Goiter 6936666 E04.9 (evident on thyroid u/s done on 10/26/20) -- recheck lab(s) around 03/02/21 Dyspnea 753978068 R06.00 -- spirometry and EKG done on 10/11/20-- will issue Trelegy since Breztri cause gas and GERD [id number] Samy Marrufo MD [facility], [employer] [address] [place] [address] 06/25/2022 16:17:49 06/25/2022 19:31:05 Adult health examination 160303569 Z00.00 -- check lab(s) within 7 days from 06/25/22 Chest pain 26937383 R07. 9 -- check lab(s) within 7 days from 06/25/22-- high risk for CVD (will refer for eval)-- pt does not Herpes zoster 6112944 B0 2.9 (left chest and left back)-- healed w/ hyperpigme ntatin Serum crea tinine above reference range 249038016 R79.89 -- inform pt to avoid any otc pain meds: like Ibuprofen (Motrin /Advil), & Naproxen (Aleve) or other pain meds by other physician/ health providers. -- inform patient to increase and maintain fluids to over 64 fluid ounces daily.-- check lab(s) within 7 days from 06/25/22 Goiter 8659923 E04.9 (evident on thyroid u/s done on 10/26/20) -- check lab(s) within 7 days from 06/25/22 Dyspnea 102558665 R06.00 -- spirometry and EKG done on 10/11/20-- c/w COPD-- will issue Trelegy since Breztri cause gas and GERD Impaired g lucose tolerance 7630393 R73.03 -- check lab(s) within 7 days from 06/25/22 Body mass index 25-29 - overweight 638196217 Z68.26 -- will advise weight loss; pt lost 16 # since his last visit -- pt's BMI today is 26.3(ideal is between 20-25) Hepatitis C screening 41 2580207 Z11.59 -- tested negative for Hep C on 10/12/20 HIV screening 014542394 Z11.4 -- check lab(s) within 7 days from 06/25/22 Active or passive immunization 020656653 Z23 Screening for malignant neoplasm of colon 560308043 Z12.11 -- Pt reports today 10/11/20 that he will not get the Colonoscop y. -- cologuard tested normal on 10/24/20 Screening for malignant neoplasm of prostate 286031635 Z12.5 -- check lab(s) within 7 days from 06/25/22 [id number] Samy Marrufo MD [facility] [address] ,[address] [address] 01/31/2023 14:57:40 01/31/2023 17:27:22 Chest pain 09644602 R07.9 -- high risk for CVD (will refer for eval) Thyroid nodule 673000137 E04.1 Nicotine d ependence with current use 061120811 F17.210 -- will order CheSt CTA Atheroscle rosis of aorta 93379117 I70.0 Primary er ectile dysfunction 504665027 N52.9 At low risk for fall 439 382544 Z91.81 -- no unsteady balance or gait problems-- have not fallen for over-- no fear of falling or falling tendency Active or passive immunization 223767316 Z23 Screening for malignant neoplasm of colon 538745735 Z12.11 -- Pt reports today 10/11/20 that he will not get the Colonoscop y. -- cologuard tested normal on 10/24/20 Screening for malignant neoplasm of prostate 467750731 Z12.5 -- check lab(s) within 7 days from 06/25/22 [id number] Samy Marrufo MD [facility] [address] [address] [place] [address] 05/30/2023 08:39:34 05/30/2023 10:29:13 Chest pain 61437624 R07.9 -- high risk for CVD (will refer for eval)-- asymptomat ic Thyroid nodule 947505702 E04.1 Nicotine d ependence with current use 923623306 F17.210 -- need to repeat Chest CT around Apr 03 2024 -- advised to quit smoking because of increased risks for stroke, heart attacks, cancers, COPD (emphysema /chronic bronchitis ), aneurysm and premature . Atheroscle rosis of aorta 55647091 I70.0 -- need to keep LDL cholestero l 69 or less Primary er ectile dysfunction 715571245 N52.9 At low risk for fall 439 649795 Z91.81 -- no unsteady balance or gait problems-- have not fallen for over-- no fear of falling or falling tendency Active or passive immunization 425289437 Z23 -- pt does not want Flu shot Screening for malignant neoplasm of colon 734906976 Z12.11 -- Pt reports today 10/11/20 that he will not get the Colonoscop y. -- cologuard tested normal on 10/24/20 Screening for malignant neoplasm of prostate 597960621 Z12.5 -- PSA of 6.0 (02/05/23) Prostate s pecific antigen outside reference range 377654383 R97.8 -- will refer pt to Urologist for eval of elevated PSA of 5.6-- pt was referred to Urology [facility] but got a call that said they do not accept his [employer] insurance. Consequent ly pt did not do anything.- - advise pt to call his [employer] insurance to find out which Urologist is on his plan and let me know.-- In the meantime, I will refer him to another Urologist Peripheral vascular disease 156085521 I73.9 -- 'feet turned cold & purple sometimes' worse with walking but no pain [id number] Samy Marrufo MD [facility] [facility] [employer] [address] [facility] [place] ,[address] [address] 11/29/2023 09:47:44 11/29/2023 12:16:47 Adult health examination 261454555 Z00.00 -- check lab(s) within 7 days from 06/25/22 Prostate s pecific antigen outside reference range 839272881 R97.8 -- will refer pt to Urologist for eval of elevated PSA of 5.6-- pt was referred to Urology [facility] but got a call that said they do not accept his [employer] insurance. Consequent ly pt did not do anything.- - advise pt to call his [employer] insurance to find out which Urologist is on his plan and let me know.-- In the meantime, I will refer him to another Urologist Chest pain 18722659 R07. 9 -- high risk for CVD (will refer for eval)-- asymptomat ic Thyroid nodule 825088687 E04.1 Rt thyroid nodule-- inform pt that Radiologis t recommends repeating thyroid Ultrasound follow-up at 1, 2, 3 and 5 years frp, 06/17/23. Atheroscle rosis of aorta 83578880 I70.0 -- need to keep LDL cholestero l 69 or less Peripheral vascular disease 012495147 I73.9 -- 'feet turned cold & purple sometimes' worse with walking but no pain Nicotine d ependence with current use 157686983 F17.210 -- need to repeat Chest CT around Apr 03 2024 -- advised to quit smoking because of increased risks for stroke, heart attacks, cancers, COPD (emphysema /chronic bronchitis ), aneurysm and premature . Primary er ectile dysfunction 745968633 N52.9 At low risk for fall 439 979915 Z91.81 -- no unsteady balance or gait problems-- have not fallen for over-- no fear of falling or falling tendency Active or passive immunization 846441723 Z23 -- pt does not want Flu shot Screening for malignant neoplasm of colon 502670181 Z12.11 -- Pt reports today 10/11/20 that he will not get the Colonoscop y. -- cologuard tested normal on 10/24/20 Screening for malignant neoplasm of prostate 161951267 Z12.5 -- PSA of 6.0 (02/05/23) Unsteady when walking 22 109529 R26.89 Left flank pain 88933540 9 R10.9 Lumbar radiculopathy 128 998531 M54.16 Pain of ri ght knee joint 0624011446 89116 M25.561 [id number] Samy Marrufo MD [employer] [facility] ,[address] [address] 01/10/2024 11:43:04 01/10/2024 14:29:54 Unsteady when walking 48463094 R26.89 -- awaiting MRI scan-- will refer pt to [facility] as pt now has [employer] and cannot see physician at [facility]. Left flank pain 84242649 9 R10.9 (after fall) -- resolved Lumbar radiculopathy 128 100554 M54.16 -- resolved Pain of ri ght knee joint 8594861232 59642 M25.561 -- pt declined PT Prostate s pecific antigen outside reference range 660257391 R97.8 -- will refer pt to Urologist for eval of elevated PSA of 5.6-- pt was referred to [facility] but got a call that said they do not accept his [employer] insurance. Consequent ly pt did not do anything.- - advise pt to call his [employer] insurance to find out which Urologist is on his plan and let me know.-- In the meantime, I will refer him to another Urologist Chest pain 17350264 R07. 9 -- high risk for CVD (will refer for eval)-- asymptomat ic Thyroid nodule 352944072 E04.1 Rt thyroid nodule-- inform pt that Radiologis t recommends repeating thyroid Ultrasound 1 year from 12/26/23 Atheroscle rosis of aorta 15241948 I70.0 -- need to keep LDL cholestero l 69 or less Peripheral vascular disease 205529574 I73.9 -- 'feet turned cold & purple sometimes' worse with walking but no pain Nicotine d ependence with current use 715987702 F17.210 -- need to repeat Chest CT around Apr 03 2024 -- advised to quit smoking because of increased risks for stroke, heart attacks, cancers, COPD (emphysema /chronic bronchitis ), aneurysm and premature .-- repeat chest LDCT 1 year from 12/26/23 Primary er ectile dysfunction 996477392 N52.9 At low risk for fall 439 267586 Z91.81 -- no unsteady balance or gait problems-- have not fallen for over-- no fear of falling or falling tendency Active or passive immunization 345261371 Z23 -- pt does not want Flu shot Screening for malignant neoplasm of colon 781121681 Z12.11 -- Pt reports today 10/11/20 that he will not get the Colonoscop y. -- cologuard tested normal on 10/24/20 Screening for malignant neoplasm of prostate 312955849 Z12.5 -- PSA of 6.0 (02/05/23) Chronic ob structive pulmonary disease 03764818 J44.9 [id number] Samy Marrufo MD [employer] [address] [address] 06/25/2024 11:02:26 06/25/2024 13:38:48 Chronic obstructive pulmonary disease 76148790 J44.9 Pain of ri ght knee joint 2425744066 72117 M25.561 -- pt declined PT-- pt reports he is currently following w/ Ortho at [facility] Prostate s pecific antigen outside reference range 709081739 R97.8 -- will refer pt to Urologist for eval of elevated PSA of 5.6-- pt was referred to [facility] but got a call that said they do not accept his [employer] insurance. Consequent ly pt did not do anything. Thyroid nodule 871690308 E04.1 Rt thyroid nodule-- inform pt that Radiologis t recommends repeating thyroid Ultrasound 1 year from 12/26/23 Atheroscle rosis of aorta 65845419 I70.0 -- need to keep LDL cholestero l 69 or less Peripheral vascular disease 323044114 I73.9 -- 'feet turned cold & purple sometimes' worse with walking but no pain Nicotine d ependence with current use 181078526 F17.210 -- need to repeat Chest CT around Apr 03 2024 -- advised to quit smoking because of increased risks for stroke, heart attacks, cancers, COPD (emphysema /chronic bronchitis ), aneurysm and premature .-- repeat chest LDCT 1 year from 12/26/23 Primary er ectile dysfunction 323066157 N52.9 At low risk for fall 439 178645 Z91.81 -- no unsteady balance or gait problems-- have not fallen for over-- no fear of falling or falling tendency Active or passive immunization 416684103 Z23 -- pt does not want Flu shot Screening for malignant neoplasm of colon 958439500 Z12.11 -- Pt reports today 10/11/20 that he will not get the Colonoscop y. -- cologuard tested normal on 10/24/20 Screening for malignant neoplasm of prostate 528326158 Z12.5 -- PSA of 6.0 (02/05/23) Intention tremor 4362529 6 G25.2 Hyperlipidemia 23836801 E78.5 Based on the current ASCVD risk calculatio n of 28.6% on 02/10/23, inform pt to: 1. -- advise pt to stop smoking 2. -- start Rosuvastat in 5 mg daily 3. -- recheck labs within 5 days from 06/25/24 [id number] Samy Marrufo MD [employer] [address] [address] 10/22/2024 10:21:31 10/22/2024 12:20:39 Chronic obstructive pulmonary disease 97922828 J44.9 Pain of ri ght knee joint 5826405717 08307 M25.561 -- pt declined PT-- pt reports he is currently following w/ Ortho at [facility] s pecific antigen outside reference range 169545906 R97.8 -- pt saw Urologist Dr Kevin [...] share informatio n/decision making w/ his family Thyroid nodule 470746559 E04.1 Rt thyroid nodule-- inform pt that Radiologis t recommends repeating thyroid Ultrasound 1 year from 12/26/23-- check lab(s) on 12/30/24 Atheroscle rosis of aorta 75604717 I70.0 -- need to keep LDL cholestero l 69 or less-- check lab(s) on 12/30/24 Peripheral vascular disease 870705841 I73.9 -- 'feet turned cold & purple sometimes' worse with walking but no pain Hyperlipidemia 35655878 E78.5 Based on the current ASCVD risk calculatio n of 28.6% on 02/10/23, inform pt to: 1. -- advise pt to stop smoking 2. -- start Rosuvastat in 5 mg daily -- check lab(s) on 12/30/24 Intention tremor 5505713 6 G25.2 Nicotine d ependence with current use 933611607 F17.210 -- advised to quit smoking because of increased risks for stroke, heart attacks, cancers, COPD (emphysema /chronic bronchitis ), aneurysm and premature .-- repeat chest LDCT 1 year from 12/26/23-- normal US w/o AAA on 12/24/23 Primary er ectile dysfunction 455301573 N52.9 At low risk for fall 439 223161 Z91.81 -- no unsteady balance or gait problems-- last fall was 2022; none since-- no fear of falling or falling tendency Active or passive immunization 289652896 Z23 -- pt does not want Flu shot Screening for malignant neoplasm of colon 693620396 Z12.11 -- Pt reports today 10/11/20 that he will not get the Colonoscop y. -- cologuard tested normal on 10/24/20 --> but abnormal on 08/27/24 Screening for malignant neoplasm of prostate 096100891 Z12.5 -- PSA of 6.0 (02/05/23) --> 7.0 (07/02/24) [id number] Samy Marrufo MD [employer] [employer] [address] [facility] ,[address] [address] 04/28/2025 08:59:08 04/28/2025 10:52:08 General examination of patient 787388025 Z00.01 47873518 -- check lab(s) within 7 days from 04/28/25 Atrophy of muscle of right lower leg 0816981545 61163 M62.561 09270821 -- likely due to Peripheral vascular disease Chronic ob structive pulmonary disease 10215984 J44.9 -- spirometry done on 11/10/24 Pain of ri ght knee joint 1777468484 17576 M25.561 -- pt declined PT-- pt reports he is still following w/ Ortho at [place]-- check lab(s) within 7 days from 04/28/25 Prostate s pecific antigen outside reference range 603308747 R97.8 -- pt saw Urologist Dr Kevin [...] within 7 days from 04/28/25 Thyroid nodule 380231040 E04.1 Rt thyroid nodule-- inform pt that Radiologis t recommends no follow-up imaging needed -- check lab(s) within 7 days from 04/28/25 Atheroscle rosis of aorta 03373837 I70.0 -- need to keep LDL cholestero l 69 or less -- check lab(s) within 7 days from 04/28/25 Peripheral vascular disease 641881289 I73.9 -- 'feet turned cold & purple sometimes' has numbness in feet Hyperlipidemia 02636341 E78.5 Based on the current ASCVD risk calculatio n of 28.6% on 02/10/23, inform pt to: 1. -- advise pt to stop smoking 2. -- start Rosuvastat in 5 mg daily -- check lab(s) within 7 days from 04/28/25 Intention tremor 4324336 6 G25.2 Nicotine d ependence with current use 797596221 F17.210 -- advised to quit smoking because of increased risks for stroke, heart attacks, cancers, COPD (emphysema /chronic bronchitis ), aneurysm and premature .-- repeat chest LDCT 1 year from 12/26/23-- normal US w/o AAA on 12/24/23 Primary er ectile dysfunction 692262168 N52.9 At low risk for fall 439 638033 Z91.81 -- no unsteady balance or gait problems-- last fall was 2022; none since-- no fear of falling or falling tendency Active or passive immunization 421285354 Z23 -- pt does not want Flu shot Screening for malignant neoplasm of colon 093245702 Z12.11 -- Pt reports today 10/11/20 that he will not get the Colonoscop y. -- cologuard tested normal on 10/24/20 --> but abnormal on 08/27/24 Screening for malignant neoplasm of prostate 443399060 Z12.5 -- PSA of 6.0 (02/05/23) --> 7.0 (07/02/24) Screening for osteoporosis 124997117 Z13.820 392081 Normal weight 53206753 Z 68.22 7146952808 -- pt is in the healthy weight category w/ a BMI of 22.7 (ideal is between 20-25)-- pt lost 3 # since his last visit (no symptoms) Hepatitis C screening 41 4096282 Z11.59 53271014 -- tested negative for Hep C on 10/12/20 Health Concerns Section Related Observation LastModified by Organization Detai ls LastModified Time None Recorded Concern Status LastModified by Organization Details LastModified Time None Recorded Advance Directives Directive N: Payers Insurance Date Sequence Insurance Name Policy Number Policy Humphries Covered Member ID Humphries Member ID Guarantor Name 06/24/2024 1 [employer] (MEDICARE REPLACEMENT/A DVANTAGE - [place]PO) [id number] [facility] [id number] [facility] 06/25/2022 1 DIANA PORTILLO - MEDICARE-[address]IL [address] ALF BOARD (MEDICARE) [facility] [id number] [facility] 10/20/2020 1 MEDICARE-[place] (MEDICARE) [facility] [id number] [facility] 05/05/2025 1 A[employer] (MEDICARE REPLACEMENT/A DVANTAGE - HMO) [id number] [facility] Notes Date Note Type Note Provider Name and Address Organization Details Recorded Time 4 text/html Medicare Annual Wellness VisitReported by PatientSocial/Behavioral [...] assessment, patient reportsno frequent falls while walking,no dizziness/vertigo, andfall(s) in the past year ___. For home safety, patient reportsno unsafe pedro hazzards,no unsafe stairs,no unsafe gas appliances,working smoke/co detectors,use of seatbelts,no vision or hearing loss while driving,no fire arms,has hand bars in the bathroom/shower, andgood lighting in the home. Around Saturday11/06/23, pt walking up from basement to ground level when he fell from the 5th step. Pt thought his Rt leg went out and hence the fall. Pt did bump his head and bumped is left upper flank area & has minor abrasion to his left elbow & numbness in his Rt knee. Pt was seen at Urgent care [facility] in [place]. No xrays were done. Pt denies any headaches, visual sx, speech problems, memory or confusion problems, focal muscle weakness, unsteady balance or gait, coordination problems, urinary symptoms, or bowel symptoms, worsening /increasing symptoms or any new sx. Patient denies any jaw or neck discomfort, left arm pain/left arm discomfort, chest discomfort/pain, diaphoresis, breathing symptoms/chest tightness, indigestion sx, n/v, any angina equivalent symptoms, etc. MD Bishop Cruz[address] [facility] [address], [place], [address], [facility] 11/29/2023 12:05:20 4 text/html Pt comes in for f/u of left flank pain (gone), LBP (gone), COPD, Knee pain. Pt feels well and has no c/o. Pt has no new sx and no increasing sx. Patient denies any jaw or neck discomfort, left arm pain/left arm discomfort, chest discomfort/pain, diaphoresis, breathing symptoms/chest tightness, indigestion sx, n/v, any angina equivalent symptoms, etc. MD Noe Cruz [facility] [address], [place], [address], [facility] 01/10/2024 14:30:45 5 text/html Pt comes in for f/u of [...] sx, n/v, any angina equivalent symptoms, etc. MD Noe Cruz [facility] [address], [place], [address], [facility] 06/25/2024 13:39:33 5 text/html Pt comes in for f/u of COPD, ^psa, thyroid nodule, peripheral vascular dz/aortic atherosclerosis, HLD, and Nicotine dependence. Pt feels well and has no c/o. Pt has no new sx and no increasing sx. Patient denies any jaw or neck discomfort, left arm pain/left arm discomfort, chest discomfort/pain, diaphoresis, breathing symptoms/chest tightness, indigestion sx, n/v, any angina equivalent symptoms, etc. Samy Marrufo MD [address], [place], [address], [facility] 10/22/2024 12:03:16 5 text/html Medicare Annual Wellness VisitReported by [...] angina equivalent symptoms, etc. Samy Marrufo MD [address] [facility] [address], [place], [address], [facility] 04/28/2025 10:51:00
--- OUTSIDE RECORDS SUMMARY | 2025-05-19 17:42 | XMS_ITS | Clinical Summary ---
Author Organization [facility] Address [facility] [place] [address] Care Team Providers Care Equipment Operator Name Role Phone Samy Marrufo MD Primary Care Provider [phone] Allergies Active Allergy Reactions Criticality Noted Date Comments Codeine Nausea & Vomiting Low 08/06/2024 Medications budesonide-glyco pyr-formoterol (Breztri Aerosphere) 160-9-4.8 mcg/actuation inhaler Inhale 2 puffs 2 (two) times a day Active Active Problems No known active problems Social History Tobacco Use Types Packs/Day Years Used Date Smoking Tobacco: Never Assessed Sex and Gender Information Value Date Recorded Sex Assigned at Not on file 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 Gender Identity Not on file Sexual Orientation Not on file Last Filed Vital Signs Vital Sign Reading Time Taken Comments Blood Pressure 132/68 08/06/2024 9:33 AM ROCKET MOTOR MECHANIC Pulse 66 08/06/2024 9:33 AM ROCKET MOTOR MECHANIC Temperature - - Respiratory Rate 18 08/06/2024 9:33 AM ROCKET MOTOR MECHANIC Oxygen Saturation 99% 08/06/2024 9:33 AM ROCKET MOTOR MECHANIC Inhaled Oxygen Concentration - - Weight 74.4 kg (164 lb) 08/06/2024 9:33 AM ROCKET MOTOR MECHANIC Height 177.8 cm (5' 10) 08/06/2024 9:33 AM ROCKET MOTOR MECHANIC Body Mass Index 23.53 08/06/2024 9:33 AM ROCKET MOTOR MECHANIC Plan of Treatment Health Maintenance Due Date Last Done Comments Depression Screening 1950 Fall Risk Assessment 1950 Hepatitis C Screening 1950 DTaP/Tdap/Td Vaccine (1 - Tdap) 02/02/1960 Hepatitis B Screening 1967 Well Visit 65+ 2014 Pneumococcal vaccine 65+ (2 of 2 - PPSV23, PCV20, or PCV21) 12/08/2020 10/13/2020 Zoster Vaccine (2 of 2) 04/05/2023 02/08/2023 Covid-19 Vaccine (3 - 2024- season) 2025, 01/27/2021 Influenza Vaccine (#1) 2025 Insurance [employer] MEDICARE GOLD Care Teams Equipment Operator Relationship Specialty Start Date End Date Samy Marrufo MD [address] [place] [address] [address] [place] [address] PCP - General Internal Medicine 12/10/23
--- OUTSIDE RECORDS SUMMARY | 2025-05-19 17:42 | XMS_ITS | Clinical Summary ---
Author Organization [facility] Address [address] [place] [address] Care Team Providers Care Cable Tv Installer Name Role Phone Samy Marrufo MD Primary Care Provider [phone] Allergies Active Allergy Reactions Criticality Noted Date Comments Codeine Nausea and Vomiting Low 08/06/2024 Medications BREZTRI AEROSPHERE 160-9-4.8 MCG/ACT inhaler Inhale 2 puffs into the lungs 2 (two) times daily. Active cyclobenzaprine (FLEXERIL) 10 MG tablet TAKE 0.5 TO 1 TABLET BY MOUTH 2 TIMES A DAY Active rosuvastatin (CRESTOR) 5 MG tablet Take 1 tablet (5 mg total) by mouth every evening. Active sildenafil (VIAGRA) 100 MG tablet TAKE 1 TABLET BY MOUTH ONCE DAILY NEEDED ONLY Active valACYclovir (VALTREX) 1 g tablet Take 1 tablet (1,000 mg total) by mouth 3 (three) times daily. Active Active Problems Problem Noted Date Diagnosed Date Peripheral vascular disease 04/27/2023 Renal cyst 04/13/2023 Chronic obstructive pulmonary disease 02/12/2023 Hyperlipidemia 02/10/2023 Abnormal prostate specific antigen (PSA) 023 Atherosclerosis of aorta 01/31/2023 Primary erectile dysfunction 01/31/2023 Dyspnea 06/24/2022 Herpes zoster 06/24/2022 High serum creatinine 06/24/2022 Hyperglycemia 06/24/2022 Impaired glucose tolerance 06/24/2022 Goiter 06/24/2022 Encounters Date Type Department Care Team Description 05/11/2025 Telephone [facility] [facility], [address] [address] Hussein Squires MD Appointment Reminder 05/10/2025 Orders Only [facility], [address] [place] [address] Agnieszka Camacho MA 05/04/2025 Telephone [facility], [address] [place] [address] Hussein Squires MD Appointment Request from Last 3 Months Immunizations Immunization Administration Dates Next Due Pneumococcal (Prevnar 13) 10/13/2020 Social History Tobacco Use Types Packs/Day Years Used Date Smoking Tobacco: Never Assessed Sex and Gender Information Value Date Recorded Sex Assigned at Not on file Legal Sex Male 6:14 PM CDT Gender Identity Not on file Sexual Orientation Not on file Plan of Treatment Upcoming Encounters Date Type Department Care Team (Late st Contact Info) Description 06/09/2025 2:00 PM BIOCHEMISTRY TECHNOLOGIST Office Visit [facility], [address] [place], [place] [id number] Hussein Squires MD [facility]. [address] [place], [place] [id number] Health Maintenance Due Date Last Done Comments Hepatitis C 1968 DTaP, Tdap and Td Vaccines ( 1 - Tdap) 02/02/1968 Zoster Vaccines (1 of 2) 1999 Annual Medicare Wellness Visit 2014 Pneumococcal Vaccine: 50+ Years (2 of 2 - PPSV23, PCV20, or PCV21) 12/08/2020 10/13/2020 RSV Immunization or 60+ Years (1 - 1-dose 75+ series) 02/02/2024 ASCVD LDL 12/09/2024 12/10/2023 COVID-19 Vaccine (3 - 2024-2 6 season) 2025 02/18/2021, 01/27/2021 Influenza Adult (#1) 2025 Hepatitis A Vaccines Aged Out No long er eligible based on patient's age to complete this topic Meningococcal B Vaccine Aged Out No l onger eligible based on patient's age to complete this topic Meningococcal Vaccine Aged Out No carmen sherwin eligible based on patient's age to complete this topic RSV Immunizations Under 20 Months Aged Out No longer eligible b ased on patient's age to complete this topic Procedures Procedure Name Priority Date/Time Associated Diagnosis Comments LIPID PANEL Routine 12/10/2023 from Last 3 Months or Most Recently Relevant to Health Maintenance Results * LIPID PANEL (12/10/2023) CHOLESTEROL 123 TRIGLYCERIDES 80 HDL 34 LDL (CALCULATED) 73 us Default History Genericprovider LABORATORY Final Result from Last 3 Months or Most Recently Relevant to Health Maintenance Insurance [employer] MEDICARE Care Teams Cable Tv Installer Relationship Specialty Start Date End Date Samy Marrufo MD [address] [facility] [address] [place] [address] PCP - General INTERNAL MEDICINE 10/17/20
== END 2025-05-19 14:49 | disposition home or self-care (01) ==
PROVIDERS: PCP Internal Medicine; Visit Provider Internal Medicine
DX: Z12.2 Encounter for screening for malignant neoplasm of respiratory organs (principal); F17.210 Nicotine dependence, cigarettes, uncomplicated; R91.8 Other nonspecific abnormal finding of lung field; Z13.820 Encounter for screening for osteoporosis
CPT/HCPCS: 71271